=== PATIENT | male | born 1965 | race Caucasian/White ===

== ENCOUNTER 2017-05-05 09:21 | Emergency (ER) | payer BC ==
[~2017-05-05] VITALS: Ht 177.8 cm; Wt 118.4 kg
[2017-05-05 09:24] VITALS: TEMP 36.3; Ht 177.8 cm; Wt 118.4 kg
[2017-05-05] MEDS ORDERED: FLUT0.15 NAE (09:37)
[2017-05-05] MEDS ORDERED: OXYM0.056 NAE (09:37)
[2017-05-05] MEDS ORDERED: ONDANSETRON INJ 2 MG/ML 2 ML VIAL IV STA (09:43)
[2017-05-05] MEDS ORDERED: SODIUM CHLORIDE 0.9% 1000ML 1,000 ML IV STA (09:43)
[2017-05-05] MEDS ORDERED: MoRPHine SULFATE 10 MG/ML CARP/VIAL IV STA (09:43)
[2017-05-05 10:11] LABS: BASO % 0.6 %; BASO ABS # 0.03 K/uL (0-0.2); EOS % 3.9 %; EOS ABS # 0.21 K/uL (0-0.5); HEMATOCRIT 42.6 % (42-52); HEMOGLOBIN 14.7 g/dL (14.0-18.0); IG# 0.05 K/uL (0.00-0.02); LYMPH % 27.3 %; LYMPH ABS # 1.47 K/uL (1.2-3.4); MEAN CELL VOLUME 94.9 fL (80-100); MEAN CORPUSCULAR HEMOGLOBIN 32.7 pg (25-34); MEAN CORPUSCULAR HGB CONC 34.5 g/dl (32-36); MONO % 8.2 %; MONO ABS # 0.44 K/uL (0.11-0.59); NEUT % 59.1 %; NEUT ABS # 3.18 K/uL (1.4-6.5); PLATELET COUNT 257 K/uL (130-400); RED CELL DISTRIBUTION WIDTH CV 12.7 % (11.5-14.5); RED CELL DISTRIBUTION WIDTH SD 43.7 fL (36.4-46.3); WHITE BLOOD COUNT 5.38 K/uL (4.8-10.8)
[2017-05-05 10:32] LABS: ALBUMIN 3.2 gm/dl (3.4-5.0); CALCIUM 8.6 mg/dl (8.5-10.1); CREATININE 0.91 mg/dl (0.60-1.40); POTASSIUM 3.9 mmol/L (3.5-5.1)
[2017-05-05 10:35] LABS: TOTAL PROTEIN 7.3 gm/dl (6.4-8.2)
[2017-05-05] MEDS ORDERED: OPTIRAY 320 IV PRN (11:15)
--- NOTE | 2017-05-05 12:11 | DIAGNOSTIC IMAGING REPORT ---
ABD/PELVIS IV CONTRAST ONLY CT DOSE: 1405.36 mGy.cm HISTORY: Pain R mid quad abd pain x7 days TECHNIQUE: Multiaxial CT images of the abdomen and pelvis were performed following the use of intravenous contrast. A dose lowering technique was utilized adhering to the principles of ALARA. COMPARISON STUDY: None. FINDINGS: Nonspecific interstitial changes at both lung bases. Mild fatty infiltration of the liver. No significant space-occupying lesions. Lateral to the inferior aspect right hepatic lobe involving the right abdominal wall is what appears to be a heterogeneous abdominal wall hematoma laterally. This measures] 18 x 8 cm. It does not appear to be in active hemorrhagic focus. No definite acute bony abnormalities appreciated. There is no intra-abdominal extension. Bowel pattern is considered nonobstructive. Bladder is relatively collapsed. There is no free fluid within the pelvic cul-de-sac. There are scattered colonic diverticuli with no evidence for diverticulitis. IMPRESSION: 1. Right flank hematoma involving lower aspects of the right chest and lateral abdominal wall. 2. No evidence for intra-abdominal or intrapelvic pathology. 3. No acute bony abnormality. 4. Follow-up in several months to ensure complete resolution is suggested. 5. Mild bibasilar nonspecific interstitial change. The above report was generated using voice recognition software. It may contain grammatical, syntax or spelling errors. Electronically signed by: Ry Barnhart M.D. 05/05/2017 12:10 PM Dictated Date/Time: 05/05/2017 12:02 PM
[2017-05-05] MEDS ORDERED: HYDR-5688 PO (12:39)
[2017-05-05 12:55] VITALS: BP 118/84; PULSE 75; O2SAT 96
--- NOTE | 2017-05-05 15:16 | EMERGENCY ROOM VISIT NOTE ---
ED Visit Note First contact with patient: 09:29 Chief Complaint: Abdominal pain. History of Present Illness: Mr. Jaramillo is a 51 year-old white male who ambulates into the ED complaining of right sided abdominal pain. Historically patient reports last few months he has been diagnosed with chronic sinusitis. He has been having upper respiratory tract symptoms including coughing, sneezing. He reports last week, 7 days ago, he sneezed in his office and felt like he pulled a muscle on the right side of his abdomen. Since that time he has been having mild pain in the right mid quadrant area that worsens with cough. Patient reports today after waking in getting out of bed he may acute onset of severe right-sided abdominal pain in the same location. Currently he places this discomfort in the mid right quadrant area with mild radiation into the right flank and into the upper portion of the right lower quadrant. He has difficulty describing his discomfort. He rates his discomfort 8/10. His pain worsens with cough, taking a deep breath, movements at the waist and palpation. He has not identified any alleviating factors related to the pain. He reports he took 3 ibuprofen tablets prior to arrival at the hospital without relief of his discomfort. *Clear patient denies any significant gastrointestinal disorders and has had no previous abdominal surgeries. Patient denies fevers, chills, sweats, skin eruptions, skin color changes, upper respiratory tract symptoms, shortness of breath, chest pain, nausea, vomiting, diarrhea, constipation, rectal bleeding, black/tarry stools, urinary symptoms, hematuria, back/flank pain. Review of Systems: As noted above in history of present illness. All body systems were reviewed and found to be negative as noted above. Past Medical History: As previously noted and status post tonsillectomy. Current Medications: Flonase, Afrin. Allergies to Medications: Patient denies. Social History: Patient is currently employed; he feels safe in his home environment; he denies tobacco use and admits to alcohol use. Physical Examination: Vital Signs: Date Time Temp Pulse Resp B/P (MAP) Pulse Ox O2 Delivery O2 Flow Rate FiO2 05/05/17 12:55 75 118/84 96 05/05/17 11:41 84 15 125/88 93 Room Air 05/05/17 10:30 78 20 119/90 91 Room Air 05/05/17 10:05 86 05/05/17 10:03 88 16 136/98 96 Room Air 05/05/17 09:24 36.3 87 20 139/98 94 Room Air GENERAL: 51-year-old male in mild to moderate distress due to pain, nontoxic- appearing, afebrile and hemodynamically stable. NEUROLOGICAL: Awake, alert and oriented to person, place and time. Answering questions appropriately and following commands. Normal gait. Good hand eye coordination. SKIN: Warm, dry and pink. No soft tissue eruptions or trauma noted. HEENT: Atraumatic and normocephalic. PERRLA. Sclera white and conjunctiva pink. Oral cavity moist and pink. Pharynx is nonerythematous or edematous. Speech normal. No lymphadenopathy. Trachea midline. No jugular venous distention. BACK: No tenderness over the bony spine. No CVA tenderness. THORAX: Lungs sounds are clear to auscultation and equal bilaterally with symmetrical chest wall. No wheezing, rales or rhonchi. No crepitus, tenderness , subcutaneous air or deformities noted. HEART: Regular rate and rhythm. No gallops, rubs or murmurs are appreciated. ABDOMEN: Protuberant and soft mild tenderness starting at the lower border of the right upper quadrant and extending into the lower quadrant. No tenderness over McBurney's point. Decreased bowel sounds in all quadrants. No guarding, rigidity or organomegaly. EXTREMITIES: Moves all extremities well on command and with purpose. All distal neurovascular statuses are intact and equal bilaterally. ED Course: Patient is assessed as noted above. Patient's medication list was reviewed. Laboratory Testing: Test 05/05/17 09:55 05/05/17 11:45 Range/Units White Blood Count 5.38 4.8-10.8 K/uL Red Blood Count 4.49 4.7-6.1 M/uL Hemoglobin 14.7 14.0-18.0 g/dL Hematocrit 42.6 42-52 % Mean Corpuscular Volume 94.9 80-100 fL Mean Corpuscular Hemoglobin 32.7 25-34 pg Mean Corpuscular Hemoglobin Concent 34.5 32-36 g/dl Platelet Count 257 130-400 K/uL Mean Platelet Volume 9.0 7.4-10.4 fL Neutrophils (%) (Auto) 59.1 % Lymphocytes (%) (Auto) 27.3 % Monocytes (%) (Auto) 8.2 % Eosinophils (%) (Auto) 3.9 % Basophils (%) (Auto) 0.6 % Neutrophils # (Auto) 3.18 1.4-6.5 K/uL Lymphocytes # (Auto) 1.47 1.2-3.4 K/uL Monocytes # (Auto) 0.44 0.11-0.59 K/uL Eosinophils # (Auto) 0.21 0-0.5 K/uL Basophils # (Auto) 0.03 0-0.2 K/uL RDW Standard Deviation 43.7 36.4-46.3 fL RDW Coefficient of Variation 12.7 11.5-14.5 % Immature Granulocyte % (Auto) 0.9 % Immature Granulocyte # (Auto) 0.05 0.00-0.02 K/uL Sodium Level 142 136-145 mmol/L Potassium Level 3.9 3.5-5.1 mmol/L Chloride Level 108 98-107 mmol/L Carbon Dioxide Level 26 21-32 mmol/L Anion Gap 8.0 3-11 mmol/L Blood Urea Nitrogen 16 7-18 mg/dl Creatinine 0.91 0.60-1.40 mg/dl Est Creatinine Clear Calc Drug Dose 123.8 ml/min Estimated GFR () 112.7 Estimated GFR (Non- 97.2 BUN/Creatinine Ratio 17.2 10-20 Random Glucose 145 70-99 mg/dl Calcium Level 8.6 8.5-10.1 mg/dl Total Bilirubin 0.5 0.2-1 mg/dl Direct Bilirubin 0.1 0-0.2 mg/dl Aspartate Amino Transf (AST/SGOT) 19 15-37 U/L Alanine Aminotransferase (ALT/SGPT) 29 12-78 U/L Alkaline Phosphatase 86 45-117 U/L Total Protein 7.3 6.4-8.2 gm/dl Albumin 3.2 3.4-5.0 gm/dl Lipase 153 73-393 U/L Urine Color DK YELLOW Urine Appearance CLEAR CLEAR Urine pH 5.0 4.5-7.5 Urine Specific [place] 1.025 1.000-1.030 Urine Protein NEG NEG Urine Glucose (UA) NEG NEG Urine Ketones NEG NEG Urine Occult Blood NEG NEG Urine Nitrite NEG NEG Urine Bilirubin NEG NEG Urine Urobilinogen NEG NEG Urine Leukocyte Esterase NEG NEG IV Contrast Abdominal/Pelvic CT: Was reviewed by myself and read by the radiologist and shows large right flank measuring 18 x 8 cm with no active bleeding. Patient was hydrated with normal saline he initially received 6 mg of morphine IV for pain and 4 mg of Zofran IV. Patient was reassessed multiple times during his stay in the emergency department. Patient's case was reviewed with Dr. Li; we agreed on diagnostic approach, treatment, disposition and plan. She was educated about today's findings and instructed on his treatment plan; he verbalizes understanding and agreement with this plan. Clinical Impression: Right flank hematoma. Decision-Making: Initially my differential diagnosis I considered kidney stone, pyelonephritis, appendicitis, hepatitis, constipation, bowel obstruction and other causes. Disposition: Patient discharged home in stable condition; prior to departure he was reassessed and subjectively reported he was feeling better and rated his discomfort 2/10. Plan: Patient was encouraged to rate his discomfort every 6 hours and he was placed on a sliding pain scale of acetaminophen and [place]; his name was checked in the state database and no red flags were noted and he was given appropriate narcotic precautions. Patient was encouraged to have close follow-up with family physician for recheck. Patient was encouraged return to the ED for worsening/uncontrolled pain, bloody stools, bloody urine, fever or any new/concerning symptoms.
== END 2017-05-05 12:55 | disposition home or self-care (01) ==
LOC: C.EDB 09:23 → C.EDA 12:55
DX: S30.1XXA Contusion of abdominal wall, initial encounter (principal); X50.1XXA Overexertion from prolonged static or awkward postures, initial encounter; Y92.89 Other specified places as the place of occurrence of the external cause

== ENCOUNTER 2022-04-23 15:09 | Inpatient (IN) ==
[2022-04-23 16:16] LABS: Basophils # (auto) 0.04 K/uL (0-0.2); Basophils % (auto) 0.4 %; Eosinophils # (auto) 0.14 K/uL (0-0.50); Eosinophils % (auto) 1.6 %; Hematocrit (blood only) 42.8 % (40.1-51.0); Hemoglobin 15.2 g/dl (14.0-18.0); Immature Granulocytes # (auto) 0.03 K/uL (0.00-0.02); Immature Granulocytes % (auto) 0.3 %; Lymphocytes # (auto) 1.32 K/uL (1.2-3.4); Lymphocytes % (auto) 14.8 %; Mean Corpuscular Hemoglobin 33.2 pg (25.0-34.0); Mean Corpuscular Hgb Conc 35.5 g/dL (32.0-36.0); Mean Corpuscular Volume 93.4 fL (80.0-100.0); Mean Platelet Volume 9.4 fL (9.4-12.4); Monocytes # (auto) 0.64 K/uL (0.24-0.82); Monocytes % (auto) 7.2 %; Neutrophils # (auto) 6.75 K/uL (1.4-6.5); Neutrophils % (auto) 75.7 %; Platelet Count 165 K/uL (130-400); RDW Coefficient of Variation 11.9 % (11.5-14.5); RDW Standard Deviation 40.4 fL (36.4-46.3); Red Blood Count 4.58 M/uL (4.63-6.08); White Blood Count 8.92 K/ul (4.8-10.8)
[2022-04-23 16:27] LABS: INR 1.1 (0.9-1.1); Partial Thromboplastin Ratio 1.1; Partial Thromboplastin Time 29.6 Seconds (21.0-31.0); Prothrombin Time 11.5 Seconds (9.0-12.0)
[2022-04-23 16:48] LABS: Albumin Globulin Ratio 1.2 (0.9-2); Bilirubin,Total 0.9 mg/dl (0.2-1.0); Calcium 8.6 mg/dl (8.5-10.1); Creatinine Clr Calc Pharmacy 106.7 ml/min; Est GFR (African American) 97.1 ml/min; Est GFR (Non-African American) 83.8 ml/min; Globulin 3.3 gm/dl (2.5-4.0); Potassium 3.9 mmol/L (3.5-5.1); Total Protein 7.3 gm/dl (6.0-8.3)
[2022-04-23 16:51] LABS: Influenza A virus by PCR Negative (Neg); Influenza B virus by PCR Negative (Neg); RSV by PCR Negative (Neg); SARS CoV2 RNA(COVID-19) Ceph NEGATIVE (Negative)
[2022-04-23 17:09] LABS: D Dimer 330 ug/L FEU (0-500)
--- NOTE | 2022-04-23 18:07 | Emergency Department Note ---
Impression & Plan SOB (shortness of breath), Cardiomegaly, Pulmonary edema, HTN (hypertension) ED Provider Note Provider: Panfilo Gomez MD DATE OF SERVICE: 04/23/2022 CHIEF COMPLAINT: Shortness of breath, chest tightness HISTORY OF PRESENT ILLNESS: Patient is a 56-year-old gentleman presented today stating has been well recently woke up this morning and is chest was a bit tight and is feeling short of breath. Denies real chest pain. Denies significant abdominal pain or nausea or vomiting. Relays that not having any significant leg swelling or tenderness. Went to urgent care and was given a nebulizer and then sent here for further evaluation. States he did have a chest x-ray there and has a report on his phone from there. Patient states he does not regular go to the doctor as he is pretty healthy and has normal exercise tolerance when he is been exercising recently other than today. Has traveled recently to [place] and [facility]. Patient relates he may be had a little bit of swelling around his left great toe earlier but that is resolved and states he is a history of gout. Denies any significant calf or leg pain. PAST MEDICAL HISTORY: As noted above MEDICATIONS: Denies current medication SOCIAL HISTORY: Non-smoker Family history of heart disease in father PHYSICAL EXAM: GENERAL: alert and oriented in no acute distress on stretcher Head: normocephalic and atraumatic EYES: No injection, discharge or icterus. NECK: Trachea midline. ENT: Mucous membranes pink and moist. LUNGS: Airway patent. No retractions. Breath sounds clear slightly diminished in the bases. HEART: Regular rate and rhythm. No chest wall tenderness ABDOMEN: Soft and non-tender, without guarding or rebound. SKIN: Acyanotic, warm, dry, without rashes EXTREMITIES: Without swelling, tenderness or deformity NEUROLOGICAL: No focal deficits. No aphasia. No facial droop or slurred speech. Ambulatory. EK bpm sinus rhythm with PVC. No acute ST segment elevation with a QTC of 462. No significant ST depression noted. CONTINUOUS CARDIAC MONITORING: was ordered and showed a heart rate of 80s-90s bpm in normal sinus rhythm Patient's laboratory studies and imaging reviewed. Differential includes Cardiac ischemia, aortic dissection, pulmonary embolism, pneumothorax, pneumonia, pericarditis, myocarditis, esophageal rupture, GERD, cholecystitis, pancreatitis, musculoskeletal, as well as other pathologies. IMPRESSION/MEDICAL DECISION MAKING: Patient with a negative COVID test. EKG obtained without significant abnormality. Does report mainly shortness of breath with some tightness of breathing but no history of smoking or asthma reported. Reviewed his chest x- ray report is available on his phone to me with interstitial markings noted on that report. Again denies chest pain. Benign abdomen. Not having significant swelling or tenderness of the calves and lower suspicion for DVT here. If he can anemia or leukocytosis on blood work. D-dimer not significantly elevated. Negative flu and RSV test as well. No signs of hepatitis. No significant electrolyte abnormality or signs of renal dysfunction. Troponin is interestingly elevated at 53.9. This is concerning given the tightness and shortness of breath he reports. Although this time is not significant elevated to complete a CT of the chest to exclude pulmonary embolism especially in light of his recent travel. CT report per radiology without evidence of PE with cardiomegaly as well as small bilateral pleural effusions with interstitial pulmonary edema and groundglass opacities reflecting a cyst versus El early pulmonary edema. Question if he may have developed some, cardiac event and has a touch of heart failure. Does not appear grossly fluid overloaded clinically exam not hypoxic. Given however is otherwise healthy status with this change of the elevated troponin discussed with him further care here at the hospital and cardiac evaluation. Question onset of some CHF of unclear etiology. Hospitalist contacted. Given a dose of aspirin as well as a small dose of Lasix IV. DIAGNOSIS: Shortness of breath, elevated troponin, bilateral pleural effusions DISPOSITION: Hospitalist will evaluate Patient was agreeable with this plan. Past Med/Surg History Medical History Gout HTN (hypertension) [place] on CPAP Surgical History S/P tonsillectomy Family History Other Hypertension Social History Smoking Status: Never smoker Hx Alcohol Use: Yes Alcohol type: wine Alcohol Intake Frequency: 2-3 x/Week Preferred Language: Portuguese Feels Safe at Home: Yes Allergies Allergies Allergy/AdvReac Type Severity Reaction Status Date / Time No Known Allergies Allergy Unverified 04/23/22 19:10 Home Meds Home Medications Medication Instructions Recorded Confirmed multivitamin 1 tab PO DAILY 04/23/22 04/23/22 phenylephrin 5 mg-DM 10 2 tab PO Q4H PRN .cold/flu 04/23/22 04/23/22 mg-acetaminophen 325 mg-guaifen 200 mg capsule (Mucinex Fast-Max Cold-Flu) Results & Data (ED) Vital Signs Vital Signs - 24 hr 04/23/22 15:12 04/23/22 15:12 04/23/22 15:54 Temperature 36.2 C L Temperature Source Temporal Artery Scan Pulse Rate 90 Pulse Rate [Apical] 88 Pulse Rhythm [Apical] Pulse Strength [Apical] Respiratory Rate 18 19 Respiratory Effort / Characteristics Non-Labored Spontaneous Respiratory Depth Normal Respiratory Pattern Regular Blood Pressure 172/108 H Blood Pressure [Left Arm] 154/105 H Blood Pressure Mean 129 Blood Pressure Mean [Left Arm] 121 Blood Pressure Position Sitting Blood Pressure Position [Left Arm] Pulse Oximetry 97 97 96 Oxygen Delivery Method Room Air Room Air Room Air Oxygen Flow Rate Sepsis Recent Fever Within 48 Hours No Sepsis New/Unexplained Change in Mental Status N/A Sepsis Action Taken by Nursing No Action Required 04/23/22 18:18 04/23/22 18:21 Temperature Temperature Source Pulse Rate Pulse Rate [Apical] 97 H Pulse Rhythm [Apical] Regular Pulse Strength [Apical] Normal Respiratory Rate 18 Respiratory Effort / Characteristics Non-Labored Respiratory Depth Normal Respiratory Pattern Blood Pressure Blood Pressure [Left Arm] 176/121 H Blood Pressure Mean Blood Pressure Mean [Left Arm] 139 Blood Pressure Position Blood Pressure Position [Left Arm] Sitting Pulse Oximetry 97 97 Oxygen Delivery Method Room Air Room Air Oxygen Flow Rate 0 Sepsis Recent Fever Within 48 Hours Sepsis New/Unexplained Change in Mental Status Sepsis Action Taken by Nursing Laboratory Data 04/23/22 15:58 04/23/22 15:58 Lab Results 04/23/22 04/23/22 04/23/22 Range/Units 15:58 15:58 15:58 WBC 8.92 (4.8-10.8) K/ul RBC 4.58 L (4.63-6.08) M/uL Hgb 15.2 (14.0-18.0) g/dl Hct 42.8 (40.1-51.0) % MCV 93.4 (80.0-100.0) fL MCH 33.2 (25.0-34.0) pg MCHC 35.5 (32.0-36.0) g/dL RDW Std Deviation 40.4 (36.4-46.3) fL RDW Coeff of Dre 11.9 (11.5-14.5) % Plt Count 165 (130-400) K/uL MPV 9.4 (9.4-12.4) fL Immature Gran % (Auto) 0.3 % Neut % (Auto) 75.7 % Lymph % (Auto) 14.8 % [place] % (Auto) 7.2 % Eos % (Auto) 1.6 % Baso % (Auto) 0.4 % Neut # (Auto) 6.75 H (1.4-6.5) K/uL Lymph # (Auto) 1.32 (1.2-3.4) K/uL [place] # (Auto) 0.64 (0.24-0.82) K/uL Eos # (Auto) 0.14 (0-0.50) K/uL Baso # (Auto) 0.04 (0-0.2) K/uL Immature Gran # (Auto) 0.03 H (0.00-0.02) K/uL PT 11.5 (9.0-12.0) Seconds INR 1.1 (0.9-1.1) APTT 29.6 (21.0-31.0) Seconds PTT Ratio 1.1 D-Dimer (0-500) ug/L FEU Sodium 139 (136-145) mmol/L Potassium 3.9 (3.5-5.1) mmol/L Chloride 104 (98-107) mmol/L Carbon Dioxide 29 (21-32) mmol/L Anion Gap 6 (3-11) BUN 13 (6-23) mg/dl Creatinine 1.00 (0.6-1.4) mg/dl Est Cr Clr Drug Dosing 106.7 ml/min Est GFR ( Amer) 97.1 ml/min Est GFR (Non-Af Amer) 83.8 ml/min BUN/Creatinine Ratio 13.0 (10-20) Glucose 88 (70-99(Fasting)) mg/dl Calcium 8.6 (8.5-10.1) mg/dl Magnesium 2.0 (1.7-2.4) mg/dl Total Bilirubin 0.9 (0.2-1.0) mg/dl AST 19 (13-39) U/L ALT 19 (7-52) U/L Alkaline Phosphatase 79 (34-104) U/L Troponin I High Sens (0-20) pg/ml Total Protein 7.3 (6.0-8.3) gm/dl Albumin 4.0 (3.4-5.0) gm/dl Globulin 3.3 (2.5-4.0) gm/dl Albumin/Globulin Ratio 1.2 (0.9-2) SARS-CoV-2 (PCR) (Negative) Influenza Type A (PCR) (Neg) Influenza Type B (PCR) (Neg) RSV (RT-PCR) (Neg) 04/23/22 04/23/22 04/23/22 Range/Units 15:58 15:58 15:58 WBC (4.8-10.8) K/ul RBC (4.63-6.08) M/uL Hgb (14.0-18.0) g/dl Hct (40.1-51.0) % MCV (80.0-100.0) fL MCH (25.0-34.0) pg MCHC (32.0-36.0) g/dL RDW Std Deviation (36.4-46.3) fL RDW Coeff of Dre (11.5-14.5) % Plt Count (130-400) K/uL MPV (9.4-12.4) fL Immature Gran % (Auto) % Neut % (Auto) % Lymph % (Auto) % [place] % (Auto) % Eos % (Auto) % Baso % (Auto) % Neut # (Auto) (1.4-6.5) K/uL Lymph # (Auto) (1.2-3.4) K/uL [place] # (Auto) (0.24-0.82) K/uL Eos # (Auto) (0-0.50) K/uL Baso # (Auto) (0-0.2) K/uL Immature Gran # (Auto) (0.00-0.02) K/uL PT (9.0-12.0) Seconds INR (0.9-1.1) APTT (21.0-31.0) Seconds PTT Ratio D-Dimer 330 (0-500) ug/L FEU Sodium (136-145) mmol/L Potassium (3.5-5.1) mmol/L Chloride (98-107) mmol/L Carbon Dioxide (21-32) mmol/L Anion Gap (3-11) BUN (6-23) mg/dl Creatinine (0.6-1.4) mg/dl Est Cr Clr Drug Dosing ml/min Est GFR ( Amer) ml/min Est GFR (Non-Af Amer) ml/min BUN/Creatinine Ratio (10-20) Glucose (70-99(Fasting)) mg/dl Calcium (8.5-10.1) mg/dl Magnesium (1.7-2.4) mg/dl Total Bilirubin (0.2-1.0) mg/dl AST (13-39) U/L ALT (7-52) U/L Alkaline Phosphatase (34-104) U/L Troponin I High Sens 53.9 H* (0-20) pg/ml Total Protein (6.0-8.3) gm/dl Albumin (3.4-5.0) gm/dl Globulin (2.5-4.0) gm/dl Albumin/Globulin Ratio (0.9-2) SARS-CoV-2 (PCR) NEGATIVE (Negative) Influenza Type A (PCR) Negative (Neg) Influenza Type B (PCR) Negative (Neg) RSV (RT-PCR) Negative (Neg) Administered Medications Discontinued Medications Aspirin (Aspirin 81 Mg Chew) 324 mg PO NOW STA Stop: 04/23/22 19:36 Last Admin: 04/23/22 19:40 Dose: 324 mg Documented By: PRIMITIVO Furosemide (Furosemide Inj 20 Mg/2 Ml Vial) 20 mg IV ONE ONE Stop: 04/23/22 19:36 Last Admin: 04/23/22 19:40 Dose: 20 mg Documented By: PRIMITIVO Ioversol (Optiray 320 500ml) 113 ml IV ONCE ONE Stop: 04/23/22 18:27 Last Admin: 04/23/22 18:28 Dose: 113 ml Documented By: KALEN Labetalol HCl (Labetalol Hcl Iv 5 Mg/Ml 20ml) 10 mg IV NOW STA Stop: 04/23/22 20:31 Last Admin: 04/23/22 21:00 Dose: 10 mg Documented By: PRIMITIVO Co-signed By: ALEX Imaging Data Radiologist's Impression: Chest CTA 04/23/22 17:57 CT ANGIOGRAPHY OF THE CHEST, PULMONARY EMBOLUS PROTOCOL CLINICAL HISTORY: Shortness of breath, chest pain. Elevated troponin. Evaluate for pulmonary embolus. COMPARISON STUDY: No previous studies for comparison. TECHNIQUE: Following IV administration of 113 mL of Optiray, helical axial images of the chest were obtained utilizing the pulmonary embolus protocol. Maximal intensity projections and sagittal and coronal reformats were viewed on an independent 3D workstation. IV contrast was administered without complication. Automated exposure control was utilized for the study. A dose lowering technique was utilized adhering to the principles of ALARA. CT DOSE: 863.90 mGy.cm FINDINGS: No pulmonary emboli are identified. Moderate cardiomegaly is noted. There is mild dilatation of the ascending aorta, measuring 3.9 cm at the level of the main pulmonary artery. There is moderate aortic valvular calcification. No pericardial effusion is present. Small bilateral pleural effusions are noted. There is no pneumothorax. Interlobular septal thickening is present. Scattered mild groundglass opacities are noted. There is no thoracic lymphadenopathy. Bony thorax is unremarkable. There is a small hiatal hernia. Possible hepatic steatosis. IMPRESSION: 1. No pulmonary emboli identified. 2. Moderate cardiomegaly. Small bilateral pleural effusions with interstitial pulmonary edema. Groundglass opacities could reflect atelectasis or alveolar pulmonary edema. 3. Moderate aortic valvular calcification. ACT 112: Negative or not required by law. Electronically signed by: Jeff Keys M.D. 04/23/2022 7:02 PM Discharge Plan Visit Data Chief Complaint: Shortness of Breath/Dyspnea Stated Complaint: REF BY DOC, SOB, TIGHTNESS IN CHEST ED Provider: Panfilo Gomez Discharge Problem: SOB (shortness of breath), Cardiomegaly, Pulmonary edema, HTN (hypertension) Patient Disposition: Being Evaluated by Hospitalist Discharge Instructions Interventions: ED Discharge Assessment Last Done: 04/23/22 22:03
[2022-04-23] MEDS ORDERED: OPTIRAY 320 500ml IV ONE (18:26)
--- NOTE | 2022-04-23 19:04 | CT Scan Report ---
CT ANGIOGRAPHY OF THE CHEST, PULMONARY EMBOLUS PROTOCOL CLINICAL HISTORY: Shortness of breath, chest pain. Elevated troponin. Evaluate for pulmonary embolus. COMPARISON STUDY: No previous studies for comparison. TECHNIQUE: Following IV administration of 113 mL of Optiray, helical axial images of the chest were o btained utilizing the pulmonary embolus protocol. Maximal intensity projections and sagittal and cor onal reformats were viewed on an independent 3D workstation. IV contrast was administered without co mplication. Automated exposure control was utilized for the study. A dose lowering technique was ut ilized adhering to the principles of ALARA. CT DOSE: 863.90 mGy.cm FINDINGS: No pulmonary emboli are identified. Moderate cardiomegaly is noted. There is mild dilatati on of the ascending aorta, measuring 3.9 cm at the level of the main pulmonary artery. There is moder ate aortic valvular calcification. No pericardial effusion is present. Small bilateral pleural effusi ons are noted. There is no pneumothorax. Interlobular septal thickening is present. Scattered mild gr oundglass opacities are noted. There is no thoracic lymphadenopathy. Bony thorax is unremarkable. The re is a small hiatal hernia. Possible hepatic steatosis. IMPRESSION: 1. No pulmonary emboli identified. 2. Moderate cardiomegaly. Small bilateral pleural effusions with interstitial pulmonary edema. Ground glass opacities could reflect atelectasis or alveolar pulmonary edema. 3. Moderate aortic valvular calcification. ACT 112: Negative or not required by law. Electronically signed by: Jeff Keys M.D. 04/23/2022 7:02 PM
[2022-04-23] MEDS ORDERED: FUROSEMIDE INJ 20 MG/2 ML VIAL IV ONE (19:35)
[2022-04-23] MEDS ORDERED: ASPIRIN 81 MG CHEW PO STA (19:35)
--- NOTE | 2022-04-23 20:04 | History & Physical Report ---
Date of Service April 23, 2022 Assessment & Plan (1) SOB (shortness of breath): (2) Pulmonary edema: (3) Cardiomegaly: Plan: This is a 56yo M with HTN, ISRA[place], gout who presents with chest tightness and SOB. Was seen earlier this afternoon at urgent care and given nebulizer without much improvement of symptoms and was directed to ED for further evaluation and found to have cardiomegaly and pulmonary edema concerning for CHF. SOB, chest tightness and orthopnea since early this AM Denies previous dx of HTN,CHF, arrhythmia or DC Chest CTA without pulmonary emboli identified. Moderate cardiomegaly. Small bilateral pleural effusions with interstitial pulmonary edema. Moderate aortic valvular calcification Given aspirin 324 and lasix 20mg IV x 1 in ED with good diuresis so far. Will plan on additional 10mg IV in AM and reassess volume Strict I&Os, added BNP to labs, low sodium diet, daily weights, 2D echo, repeat ECG in AM, cardiology consult ECG with NSR with frequent PVCs. HS troponin 53.9 in setting of uncontrolled BP - trend, monitor on tele (4) HTN (hypertension): Plan: Uncontrolled since arrival, 170/106 during interview. Ordered 10mg IV Labetalol. Continue to monitor closely History of HTN per outpatient chart review but patient denies ever taking medications for this Does endorse recent weight gain, concern about ill-fitting cpap device (5) ISRAEL on CPAP: Plan: Wears HS, 13 cwp DVT Ppx: SQ heparin Code status: FULL PCP: Minh Dispo: Admitted to PCU Patient seen in collaboration with Dr. Belle. Please see addendum. History of Present Illness Chief Complaint: SOB, chest tightness Primary Care Provider: Av Wilkinson MD This is a 56yo M with HTN, [place]RA[place], gout who presents with chest tightness and SOB. Was seen earlier this afternoon at urgent care and given nebulizer without much improvement of symptoms and was directed to ED for further evaluation. Noticed some heart racing prior to [place] and thought he was drinking too much caffeine so cut out coffee. Has not had recurrent palpitations since then but did wake up with chest tightness and inability to fully catch his breath. Has not been as active lately since weather is colder and has gained some weight. Has a dry cough and orthopnea today requiring him to sit in bedside chair during interview. Endorses small amount of leg swelling but no junior chest pain. Rec ent travel to [facility] and [place]. Does not regularly take meds besides a multivitamin. Uses his cpap every night but states he needs to get the face strap replaced because it isn't sealing well. Has a diagnosis of HTN in outpatient chart but has never been on medications. No fever, chills, lightheadedness, CP, wheezing, nausea, vomiting, abdominal pain, dysuria, diarrhea or constipation. 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 Allergies Allergy/AdvReac Type Severity Reaction Status Date / Time No Known Allergies Allergy Unverified 04/23/22 19:10 Home Medications Medication Instructions Recorded Confirmed Type multivitamin 1 tab PO DAILY 04/23/22 04/23/22 History phenylephrin 5 mg-DM 10 2 tab PO Q4H PRN .cold/flu 04/23/22 04/23/22 History mg-acetaminophen 325 mg-guaifen 200 mg capsule (Mucinex Fast-Max Cold-Flu) Past Med/Surg History Medical History Gout HTN (hypertension) ISRAEL on CPAP Surgical History S/P tonsillectomy Family History Other Hypertension Social History Smoking Status: Never smoker Hx Alcohol Use: Yes Alcohol type: wine Alcohol Intake Frequency: 2-3 x/Week Preferred Language: Arabic Feels Safe at Home: Yes Review of Systems Review of Systems: At least ten systems reviewed and negative except as noted in the HPI. Physical Exam Physical Exam: Please see Dr. Belle's addendum for physical exam. Results & Data Results & Data ([facility]) Vital Signs (Past 12 Hours) Vital Signs Temp Pulse Pulse Resp BP BP Pulse Ox 04/23/22 18:21 97 H 18 176/121 H 97 04/23/22 18:18 97 04/23/22 15:54 88 19 154/105 H 96 04/23/22 15:12 97 04/23/22 15:12 36.2 C L 90 18 172/108 H 97 O2 Del Method O2 Flow Rate 04/23/22 18:21 Room Air 04/23/22 18:18 Room Air 0 04/23/22 15:54 Room Air 04/23/22 15:12 Room Air 04/23/22 15:12 Room Air Laboratory Results Short CBC 04/23/22 Range/Units 15:58 WBC 8.92 (4.8-10.8) K/ul Hgb 15.2 (14.0-18.0) g/dl Hct 42.8 (40.1-51.0) % Plt Count 165 (130-400) K/uL BMP 04/23/22 15:58 Sodium 139 Potassium 3.9 Chloride 104 Carbon Dioxide 29 BUN 13 Creatinine 1.00 Glucose 88 Calcium 8.6 Liver Function 04/23/22 Range/Units 15:58 Total Bilirubin 0.9 (0.2-1.0) mg/dl AST 19 (13-39) U/L ALT 19 (7-52) U/L Alkaline Phosphatase 79 (34-104) U/L Albumin 4.0 (3.4-5.0) gm/dl Diagnostic Findings Chest CTA 04/23/22 17:57 CT ANGIOGRAPHY OF THE CHEST, PULMONARY EMBOLUS PROTOCOL CLINICAL HISTORY: Shortness of breath, chest pain. Elevated troponin. Evaluate for pulmonary embolus. COMPARISON STUDY: No previous studies for comparison. TECHNIQUE: Following IV administration of 113 mL of Optiray, helical axial images of the chest were obtained utilizing the pulmonary embolus protocol. Maximal intensity projections and sagittal and coronal reformats were viewed on an independent 3D workstation. IV contrast was administered without complication. Automated exposure control was utilized for the study. A dose lowering technique was utilized adhering to the principles of ALARA. CT DOSE: 863.90 mGy.cm FINDINGS: No pulmonary emboli are identified. Moderate cardiomegaly is noted. There is mild dilatation of the ascending aorta, measuring 3.9 cm at the level of the main pulmonary artery. There is moderate aortic valvular calcification. No pericardial effusion is present. Small bilateral pleural effusions are noted. There is no pneumothorax. Interlobular septal thickening is present. Scattered mild groundglass opacities are noted. There is no thoracic lymphadenopathy. Bony thorax is unremarkable. There is a small hiatal hernia. Possible hepatic steatosis. IMPRESSION: 1. No pulmonary emboli identified. 2. Moderate cardiomegaly. Small bilateral pleural effusions with interstitial pulmonary edema. Groundglass opacities could reflect atelectasis or alveolar pulmonary edema. 3. Moderate aortic valvular calcification. ACT 112: Negative or not required by law. Electronically signed by: Jeff Keys M.D. 04/23/2022 7:02 PM ECG Additional Comments: ECG personally reviewed - NSR with frequent PVCs at [address] elevation. Code Status & VTE Plan VTE Prophylaxis Plan VTE Prophylaxis will be ordered: Yes Supervising Physician Co-Signing Physician Notes Pt is a 56 y/o M with hx of ISRA[place] on CPAP, HTN, Gout admitted for SOB with Chest pressure for one day. PE: NAD, well developed Lungs: Good air entry b/l, no wheezing, b/l lower lobe rales Cardiac: Normal S1/S2, with systolic murmur Abd: ND, NT, soft MSK: b/l moderate LE pitting edema Psych: AAOx3, normal affect A/P: SOB with chest pressure: -likely 2/2 pulm edema from possible CHF or pulm HTN from ISRA[place] -will trend trop -EKG Am - will obtain echo and card consult -s/p 20mg IV Lasix -since pt is Lasix max will start on Lasix 10mg IV daily --- depending on the echo and BP response will consider adding ACEi or ARBs to control pts BP -will obtain A1C and Lipid panel AM -admit to tele Other chronic conditions plan as above. Agree with A/P by Naty Segovia PA-C
[2022-04-23] MEDS ORDERED: LABETALOL HCL IV 5 MG/ML 20ML IV STA (20:30)
[2022-04-23] MEDS ORDERED: POLYETHYLENE (MIRALAX) 17 GM PACK PO PRN (22:02)
[2022-04-23] MEDS ORDERED: ONDANSETRON INJ 2 MG/ML 2 ML VIAL IV PRN (22:02)
[2022-04-24] MEDS: HEPARIN SOD 5,000 UNIT/0.5 ML VIAL SQ SCH ×4 (01:21→21:11)
[2022-04-24] MEDS: ACETAMINOPHEN 325 MG TAB PO PRN ×3 (01:35→21:12)
[2022-04-24 04:36] LABS: Hematocrit (blood only) 40.2 % (40.1-51.0); Hemoglobin 14.4 g/dl (14.0-18.0); Mean Corpuscular Hemoglobin 33.1 pg (25.0-34.0); Mean Corpuscular Hgb Conc 35.8 g/dL (32.0-36.0); Mean Corpuscular Volume 92.4 fL (80.0-100.0); Mean Platelet Volume 9.6 fL (9.4-12.4); Platelet Count 165 K/uL (130-400); RDW Coefficient of Variation 11.9 % (11.5-14.5); RDW Standard Deviation 39.9 fL (36.4-46.3); Red Blood Count 4.35 M/uL (4.63-6.08); White Blood Count 5.89 K/ul (4.8-10.8)
[2022-04-24 05:03] LABS: BUN Creatinine Ratio 13.6 (10-20); Calcium 8.8 mg/dl (8.5-10.1); Creatinine Clr Calc Pharmacy 121.2 ml/min; Est GFR (African American) 111.3 ml/min; Potassium 3.5 mmol/L (3.5-5.1)
[2022-04-24 06:26] LABS: Estimated Average Glucose 105 mg/dl; Hemoglobin A1C 5.3 % (4.5-5.6)
[2022-04-24] MEDS: MULTIVITAMIN TAB PO SCH (08:33)
[2022-04-24] MEDS ORDERED: FUROSEMIDE INJ 20 MG/2 ML VIAL IV SCH (09:00)
--- NOTE | 2022-04-24 09:24 | Cardiology Consultation ---
Date of Consultation April 24, 2022 Assessment & Plan (1) Systolic dysfunction: (2) Pulmonary edema: (3) Cardiomyopathy: (4) HTN (hypertension): (5) Systolic murmur: Plan 56-year-old male without prior cardiac history admitted with acute onset dyspnea and congestion. Imaging with pulmonary edema, small bilateral pleural effusions. Presenting symptoms improved after receiving low dose IV furosemide in the ER. Patient with signs and symptoms suggestive of new onset systolic heart failure (HFrEF) of unknown etiology. High-sensitivity troponin minimally elevated but flat. EKG with ST and T wave changes. Telemetry with rare ectopy only. QRS duration is narrow. RECOMMENDATIONS/PLAN: Continue low dose IV furosemide today. Hold in AM. Supplement potassium orally Initiate evidence based heart failure medications - low dose lisinopril and metoprolol succinate; likely low dose oral furosemide and spironolactone prior to discharge. Add Aspirin 81 mg/day Evaluate for underlying causes. Additional laboratory work ordered. NPO after midnight for possible diagnostic cardiac catheterization in the AM of 04/25/2022 Low sodium diet, < 1,500 mg/day Daily metabolic panels, strict I/O monitoring, daily weights on the same standing scale. Await resting echocardiography interpretation Further recommendations pending the above, evaluation by Dr. Michelle, and patient's ongoing hospital course. Supervising Physician Co-Signing Physician Notes 56-year-old patient admitted with dyspnea and chest tightness. Echocardiogram revealing moderate to severe LV systolic dysfunction and aortic valve sclerosis, borderline mild aortic valve stenosis. Patient treated with IV labetalol and furosemide with improvement of blood pressure and clinical symptoms. Currently resting comfortably. Shortness of breath improved. Repeat ECG demonstrating lateral ST changes suggesting ischemia. Cardiac enzymes are minimally elevated and flat. PE: VSS. Gen: NAD, AAO x3. Heart: Regular rhythm, normal S1-S2, 2/6 low pitched mid peaking systolic ejection murmur heard best at the right second intercostal space. Lungs: +rales at the bases bilateral. Extremities: Trace to mild bilateral pretibial edema. A/P: Agree with above PA-C history, physical exam, assessment and plan. Patient presents with acute decompensated heart failure with reduced ejection fraction. Underlying ischemic heart disease suspected with abnormal ECG and echocardiographic findings. Recommend repeat high-sensitivity troponin and ECG now. Initiate evidence-based heart failure therapy. Recommend 25 mg of metoprolol twice daily. He will receive 1 dose now. Add topical nitrates for afterload reduction. Continue IV diuresis. Give additional 20 mg IV furosemide at 3 PM. Monitor daily weight, fluid balance, GFR, electrolytes. Risk, benefits, and alternatives to cardiac catheterization recommended. Plan coronary angiography with left heart catheterization tomorrow pending review of a.m. labs and clinical status. History of Present Illness Reason for Consultation: Pulmonary edema, no CHF history Requesting Physician: Luca Attending Physician: Patrick History of Present Illness Mr. Saurabh Jaramillo is a 56 year old male who initially presented to [facility] on April 23, 2022 after awakening with abrupt onset shortness of breath, difficulty getting a deep breath, chest tightness. Moving to the cold air seemed to help. Respiratory pathogen panel negative at [facility]. Chest x-ray revealed increased interstitial markings, interpreted by the radiologist as possible atypical pneumonia versus pulmonary edema. EKG at [facility] revealed sinus rhythm at 86 bpm with occasional premature ventricular complexes, nonspecific ST abnormality lateral leads. QRS duration 98 ms. QTc 469 ms. SPO2 was mildly decreased. Patient received a nebulizer treatment without improvement and was directed to the ER. EKG on presentation to the ER revealed sinus rhythm at 91 bpm with occasional premature ventricular complexes. EKG this morning reveals normal sinus rhythm at 65 bpm with subtle anterior T wave changes and lateral ST and T wave abnormality suggestive of ischemia versus LVH. High-sensitivity troponin I minimally elevated but flat at 53.9, 55.6, 56.5 pg/mL. B natruretic peptide mildly elevated 618 pg/mL. Imaging in the ER included a CTA of the chest due to recent travel, without evidence of pulmonary emboli. CT did reveal moderate cardiomegaly with small bilateral pleural effusions with interstitial pulmonary edema, groundglass opacities, moderate aortic valve calcification In addition to the above, patient notes a mild cough, nasal and chest congestion, orthopnea. A couple of weeks ago he states that he felt jittery, attributed to drinking coffee on an empty stomach at that time. Dyspnea occurs with 1 flight of stairs. Significant lower extremity peripheral edema. No dizziness or lightheadedness. No near syncope or syncope. No recent colds, fevers, chills, or night sweats. Past Medical and Surgical History Hypertension Severe obstructive sleep apnea, CPAP therapy Gout Tonsillectomy Mildly dilated ascending aorta, 3.9 cm at the level of the main pulmonary artery via April 23, 2022 chest CTA at [facility] Moderate aortic valve calcification Small hiatal hernia Possible hepatic steatosis Family History: Father had CHF, passing at 86. Mother is alive with? CAD. Brother with hypertension. Sister without cardiac issues. Social History: Non-smoker. No smokeless tobacco. No significant alcohol. No illegal drug use. . 2 children. 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 No fevers, sweats, or chills. HEENT: + Farsightedness. No amaurosis fugax. Pulmonary: Severe obstructive sleep apnea, on CPAP therapy. No history of PE. No history of asthma. No history of COPD or emphysema. Cardiac: No prior cardiac history. Patient specifically denies history of CAD, PR, CHF, arrhythmia, rheumatic fever, or scarlet fever. GI/Abd: No dysphagia, pain, melana or hematochezia. No significant heartburn. Denies liver or kidney problems. Vascular: Denies history of claudication, AAA, or carotid artery disease. Hematologic: No coagulation disorder, anemia, or abnormal bleeding. Musculoskeletal: Gout. Skin: No rash. Neurologic: No history of TIA or CVA. No history of seizure. Male : Negative. Endocrine: No history of DM or thyroid problems. Complete Review of Systems is as stated above, negative, noncontributory. Allergies Allergy/AdvReac Type Severity Reaction Status Date / Time No Known Allergies Allergy Unverified 04/23/22 19:10 Home Medications Medication Instructions Recorded Confirmed Type multivitamin 1 tab PO DAILY 04/23/22 04/23/22 History phenylephrin 5 mg-DM 10 2 tab PO Q4H PRN .cold/flu 04/23/22 04/23/22 History mg-acetaminophen 325 mg-guaifen 200 mg capsule (Mucinex Fast-Max Cold-Flu) Patient History Medical History Gout HTN (hypertension) [place]RA[place] on CPAP Surgical History S/P tonsillectomy Family History Other Hypertension Social History Smoking Status: Never smoker Hx Alcohol Use: No Hx Substance Use: No Preferred Language: Dominican Beliefs That Will Affect Care: None Current Living Situation: Alone Feels Safe at Home: Yes Physical Exam Physical Exam: General: A&Ox3. NAD. HENT: Normocephalic. Atraumatic. Eyes: PER. Conjunctiva pink, sclera clear. Neck:? Left carotid bruit versus transmitted murmur. No JVD. Heart: RRR, 70 bpm. Grade II/ systolic ejection murmur heard best at the right upper sternal border. No diastolic murmur. No rub. No gallop. Lungs: Decreased breath sounds at the bases. Bibasilar Rales. No wheeze. Abdomen: +BS. Soft. Nontender. No masses or organomegaly. Extremities: Minimal edema. No clubbing. No cyanosis. Limited neurological examination is without focal deficits. Pulses: radial=2/4, posterior tibial=2/4. Results & Data ([facility]) Vital Signs (Past 12 Hours) Vital Signs Pulse Pulse Resp BP BP Pulse Ox O2 Del Method 04/24/22 07:58 73 18 142/95 H 96 Room Air 04/24/22 07:58 18 96 Room Air 04/24/22 06:30 74 14 97 04/24/22 06:30 140/94 04/24/22 06:20 56 L 14 88 L 04/24/22 06:10 66 19 94 04/24/22 06:00 66 15 93 04/24/22 06:00 136/90 04/24/22 05:50 68 20 92 04/24/22 05:40 67 20 95 04/24/22 05:34 136/95 04/24/22 05:34 70 16 94 04/24/22 05:30 81 31 H 95 04/24/22 05:20 87 13 92 04/24/22 05:10 62 20 92 04/24/22 05:00 65 20 93 04/24/22 04:50 68 23 93 04/24/22 04:40 63 22 94 04/24/22 04:30 65 22 83 L 04/24/22 04:30 115/79 04/24/22 04:20 62 20 89 L 04/24/22 04:10 63 16 91 04/24/22 04:00 68 18 94 04/24/22 04:00 128/86 04/24/22 03:50 64 20 92 04/24/22 03:40 58 L 13 92 04/24/22 03:30 65 13 90 04/24/22 03:30 119/84 04/24/22 03:20 64 14 93 04/24/22 03:10 69 22 88 L 04/24/22 03:00 71 20 93 04/24/22 03:00 132/90 04/24/22 02:50 70 23 89 L 04/24/22 02:40 67 22 92 04/24/22 02:35 68 23 92 04/23/22 21:46 78 18 151/90 H 94 Room Air Laboratory Results Cardiac Enzymes 04/23/22 04/23/22 04/23/22 Range/Units 15:58 15:58 21:47 AST 19 (13-39) U/L Troponin I High Sens 53.9 H* (0-20) pg/ml B-Natriuretic Peptide 618 H (0-100) pg/ml 04/23/22 04/24/22 Range/Units 22:47 04:00 AST (13-39) U/L Troponin I High Sens 55.6 H* 56.5 H* (0-20) pg/ml B-Natriuretic Peptide (0-100) pg/ml Coagulation 04/23/22 04/23/22 Range/Units 15:58 21:47 PT 11.5 (9.0-12.0) Seconds APTT 29.6 (21.0-31.0) Seconds B-Natriuretic Peptide 618 H (0-100) pg/ml Lipids 04/24/22 Range/Units 04:00 Triglycerides 301 H (0-150) mg/dl Cholesterol 194 (0-200) mg/dl HDL Cholesterol 39 mg/dl Cholesterol/HDL Ratio 5.0 (0-5) CBC 04/23/22 04/24/22 Range/Units 15:58 04:00 WBC 8.92 5.89 (4.8-10.8) K/ul RBC 4.58 L 4.35 L (4.63-6.08) M/uL Hgb 15.2 14.4 (14.0-18.0) g/dl Hct 42.8 40.2 (40.1-51.0) % Plt Count 165 165 (130-400) K/uL Neut # (Auto) 6.75 H (1.4-6.5) K/uL Lymph # (Auto) 1.32 (1.2-3.4) K/uL [place] # (Auto) 0.64 (0.24-0.82) K/uL Eos # (Auto) 0.14 (0-0.50) K/uL Baso # (Auto) 0.04 (0-0.2) K/uL Comprehensive Metabolic Panel 04/23/22 04/24/22 Range/Units 15:58 04:00 Sodium 139 139 (136-145) mmol/L Potassium 3.9 3.5 (3.5-5.1) mmol/L Chloride 104 103 (98-107) mmol/L Carbon Dioxide 29 29 (21-32) mmol/L BUN 13 12 (6-23) mg/dl Creatinine 1.00 0.88 (0.6-1.4) mg/dl Glucose 88 109 H (70-99(Fasting)) mg/dl Calcium 8.6 8.8 (8.5-10.1) mg/dl AST 19 (13-39) U/L ALT 19 (7-52) U/L Alkaline Phosphatase 79 (34-104) U/L Total Protein 7.3 (6.0-8.3) gm/dl Albumin 4.0 (3.4-5.0) gm/dl Intake and Output 04/23/22 04/24/22 04/24/22 22:59 06:59 14:59 Other: Weight 119.1 kg 119.8 kg Weight Measurement Method Chair Scale Built in [facility] (1) Pulmonary edema Chronicity: acute Qualified Code(s): J81.0 - Acute pulmonary edema (2) HTN (hypertension) Hypertension type: primary hypertension Qualified Code(s): I10 - Essential (primary) hypertension
[2022-04-24] MEDS ORDERED: POTASSIUM CHLORIDE 10 MEQ TABCR PO ONE (09:55)
[2022-04-24] MEDS: lisinopril 5 MG TAB PO SCH (10:40)
[2022-04-24 11:22] LABS: Ferritin 110.4 ng/ml (8-388)
[2022-04-24] MEDS ORDERED: METOPROLOL TARTRATE 25 MG TAB PO STA (13:22)
[2022-04-24] MEDS: NITROGLYCERIN 2% OINTMENT 30GM TUBE EXT SCH ×2 (13:46→21:10)
--- NOTE | 2022-04-24 14:47 | Electrocardiogram Report ---
Test Reason : Blood Pressure : / mmHG Vent. Rate : 091 BPM Atrial Rate : 091 BPM P-R Int : 168 ms QRS Dur : 098 ms QT Int : 376 ms P-R-T Axes : 023 013 044 degrees QTc Int : 462 ms Sinus rhythm with occasional Premature ventricular complexes Otherwise normal ECG No previous ECGs available Confirmed by Prem Ford ([id number]) on 04/24/2022 2:47:22 PM Referred By: REFERRED SELF Confirmed By:Prem Ford
[2022-04-24] MEDS ORDERED: FUROSEMIDE INJ 20 MG/2 ML VIAL IV ONE (15:00)
--- NOTE | 2022-04-24 15:01 | Electrocardiogram Report ---
Test Reason : Blood Pressure : / mmHG Vent. Rate : 065 BPM Atrial Rate : 065 BPM P-R Int : 184 ms QRS Dur : 106 ms QT Int : 436 ms P-R-T Axes : 026 004 093 degrees QTc Int : 453 ms Normal sinus rhythm Abnormal ECG When compared with ECG of 23-APR-2022 15:54, (unconfirmed) Premature ventricular complexes are no longer Present T wave inversion now evident in Anterolateral leads Confirmed by Prem Ford ([id number]) on 04/24/2022 3:01:18 PM Referred By: REFERRED SELF Confirmed By:Prem Ford
--- NOTE | 2022-04-24 15:22 | Electrocardiogram Report ---
Test Reason : Blood Pressure : / mmHG Vent. Rate : 081 BPM Atrial Rate : 081 BPM P-R Int : 166 ms QRS Dur : 098 ms QT Int : 418 ms P-R-T Axes : 023 004 087 degrees QTc Int : 485 ms Normal sinus rhythm Nonspecific ST and T wave abnormality Prolonged QT Abnormal ECG When compared with ECG of 24-APR-2022 05:32, (unconfirmed) T wave inversion no longer evident in Anterior leads Confirmed by Prem Ford ([id number]) on 04/24/2022 3:22:16 PM Referred By: REFERRED SELF Confirmed By:Prem Ford
--- NOTE | 2022-04-24 16:54 | Hospitalist Progress Note ---
Date of Service April 24, 2022 Assessment & Plan (1) SOB (shortness of breath): Plan: Presented with shortness of breath and chest tightness Angina equivalent Findings are mildly elevated but has been decreasing Shortness of breath is better following admission Chest tightness is almost gone Will have cardiac cath tomorrow (2) Pulmonary edema: Plan: Has been receiving small doses of Lasix IV (3) Cardiomegaly: Plan: This is a 56yo M with HTN, [place], gout who presents with chest tightness and SOB. Was seen earlier this afternoon at urgent care and given nebulizer without much improvement of symptoms and was directed to ED for further evaluation and found to have cardiomegaly and pulmonary edema concerning for CHF. SOB, chest tightness and orthopnea since early this AM Denies previous dx of HTN,CHF, arrhythmia or [place] Chest CTA without pulmonary emboli identified. Moderate cardiomegaly. Small bilateral pleural effusions with interstitial pulmonary edema. Moderate aortic valvular calcification Given aspirin 324 and lasix 20mg IV x 1 in ED with good diuresis so far. Will plan on additional 10mg IV in AM and reassess volume Strict I&Os, added BNP to labs, low sodium diet, daily weights, 2D echo, repeat ECG in AM, cardiology consult ECG with NSR with frequent PVCs. HS troponin 53.9 in setting of uncontrolled BP - trend, monitor on tele Echo of the heart showed: LV systolic function is moderate to severely reduced with EF 35 to 40%, moderate concentric left ventricle hypertrophy, moderate global hypokinesis with severe hypokinesis of the base and posterior wall, left atrium is moderately dilated, aortic valve sclerosis without significant stenosis and there is mild MR Appreciate cardiology input and recommendation Cardiac cath tomorrow (4) HTN (hypertension): Plan: Uncontrolled since arrival, 170/106 during interview. Ordered 10mg IV Labetalol. Continue to monitor closely History of HTN per outpatient chart review but patient denies ever taking medications for this Does endorse recent weight gain, concern about ill-fitting cpap device Blood pressure seems to be stable at 149/91 (5) [place] on CPAP: Plan: Wears HS, 13 cwp DVT Ppx: SQ heparin Code status: FULL PCP: Minh Dispo: Admitted to PCU Admission and Anticipated Discharge Date Admission Date: April 23, 2022 Subjective 04/24/2022 The patient was seen and examined in telemetry unit He denies any more chest pressure and the shortness of breath is improved He will have cardiac cath tomorrow Review of Systems Review of Systems: All systems reviewed and are unremarkable except as noted below Physical Exam Physical Exam: Lying in bed comfortably Constitutional: well developed, well nourished and + obese; not ill appearing Eyes: PERRL, conjunctivae normal, anicteric sclerae ENMT: external ear and nose normal, oropharynx normal Neck: trachea midline, no thyromegaly Respiratory: no respiratory distress Auscultation: lungs clear to auscultation bilaterally Cardiovascular: Rate/Rhythm: regular rate and regular rhythm; not tachycardic Heart Sounds: normal S1 and normal S2; no murmur Extremities: + edema (1+ edema bilaterally) Gastrointestinal (Abdomen): Inspection/Auscultation: normal bowel sounds; abdomen not distended Percussion/Palpation: abdomen soft; abdomen nontender Musculoskeletal: No acute arthritis in any joint Neurologic: normal touch/pain/proprioception and moves all extremities; no focal motor deficits Psychiatric: A+Ox3, euthymic affect Lymphatic: no cervical or axillary lymphadenopathy Results & Data Results & Data ([facility]) Vital Signs (Past 12 Hours) Vital Signs Temp Pulse Pulse Resp BP BP Pulse Ox 04/24/22 15:15 37 C 80 16 142/91 H 99 04/24/22 13:46 80 18 131/85 94 04/24/22 10:43 92 H 18 148/95 H 96 04/24/22 07:58 73 18 142/95 H 96 04/24/22 07:58 18 96 04/24/22 06:30 74 14 97 04/24/22 06:30 140/94 04/24/22 06:20 56 L 14 88 L 04/24/22 06:10 66 19 94 04/24/22 06:00 66 15 93 04/24/22 06:00 136/90 04/24/22 05:50 68 20 92 04/24/22 05:40 67 20 95 04/24/22 05:34 136/95 04/24/22 05:34 70 16 94 04/24/22 05:30 81 31 H 95 04/24/22 05:20 87 13 92 04/24/22 05:10 62 20 92 04/24/22 05:00 65 20 93 04/24/22 04:50 68 23 93 O2 Del Method 01/04/23 15:15 Room Air 04/24/22 13:46 Room Air 04/24/22 10:43 Room Air 04/24/22 07:58 Room Air 04/24/22 07:58 Room Air 04/24/22 06:30 04/24/22 06:30 04/24/22 06:20 04/24/22 06:10 04/24/22 06:00 04/24/22 06:00 04/24/22 05:50 04/24/22 05:40 04/24/22 05:34 04/24/22 05:34 04/24/22 05:30 04/24/22 05:20 04/24/22 05:10 04/24/22 05:00 04/24/22 04:50 Laboratory Results Short CBC 04/24/22 Range/Units 04:00 WBC 5.89 (4.8-10.8) K/ul Hgb 14.4 (14.0-18.0) g/dl Hct 40.2 (40.1-51.0) % Plt Count 165 (130-400) K/uL BMP 04/24/22 04:00 Sodium 139 Potassium 3.5 Chloride 103 Carbon Dioxide 29 BUN 12 Creatinine 0.88 Glucose 109 H Calcium 8.8 Medications Administered Current Inpatient Medications Acetaminophen (Acetaminophen 325 Mg Tab) 650 mg PO Q4H PRN PRN Reason: Pain or Fever Stop: 05/23/22 22:01 Last Admin: 04/24/22 16:25 Dose: 650 mg Aspirin (Aspirin 81 Mg Ectab) 81 mg PO QAM [facility] Stop: 05/25/22 08:59 Furosemide (Furosemide Inj 20 Mg/2 Ml Vial) 20 mg IV DAILY [facility] Stop: 05/25/22 08:59 Heparin Sodium (Porcine) (Heparin Sod 5,000 Unit/0.5 Ml Vial) 5,000 units SQ Q8 [facility] Stop: 05/23/22 22:01 Last Admin: 04/24/22 13:46 Dose: 5,000 units Lisinopril (Lisinopril 5 Mg Tab) 5 mg PO QAM [facility] Stop: 05/24/22 09:59 Last Admin: 04/24/22 10:40 Dose: 5 mg Metoprolol Tartrate (Metoprolol Tartrate 25 Mg Tab) 25 mg PO BID [facility] Stop: 05/24/22 20:59 Multivitamins (Multivitamin Tab) 1 tab PO DAILY [facility] Stop: 05/24/22 08:59 Last Admin: 04/24/22 08:33 Dose: 1 tab Nitroglycerin (Nitroglycerin 2% Ointment 30gm Tube) 1 inch EXT Q6H [facility] Stop: 05/24/22 13:44 Last Admin: 04/24/22 13:46 Dose: 1 inch Ondansetron HCl (Ondansetron Inj 2 Mg/Ml 2 Ml Vial) 4 mg IV Q6H PRN PRN Reason: Nausea Stop: 05/23/22 22:01 Polyethylene Glycol (Polyethylene (Miralax) 17 Gm Pack) 17 gm PO DAILY PRN PRN Reason: Constipation Stop: 05/23/22 22:01 (1) Pulmonary edema Chronicity: acute Qualified Code(s): J81.0 - Acute pulmonary edema (2) HTN (hypertension) Hypertension type: primary hypertension Qualified Code(s): I10 - Essential (primary) hypertension
[2022-04-24] MEDS ORDERED: oxyCODONE HCL IR 5 MG TAB (IMMEDIATE RELEASE) PO STA (19:39)
[2022-04-24] MEDS ORDERED: METOPROLOL SUCC 25MG EXT REL TAB PO SCH (21:00)
[2022-04-24] MEDS: METOPROLOL TARTRATE 25 MG TAB PO SCH (21:10)
[2022-04-25] MEDS: ACETAMINOPHEN 325 MG TAB PO PRN ×2 (02:52→09:07)
[2022-04-25] MEDS: NITROGLYCERIN 2% OINTMENT 30GM TUBE EXT SCH ×2 (02:53→08:00)
[2022-04-25] MEDS: HEPARIN SOD 5,000 UNIT/0.5 ML VIAL SQ SCH ×3 (06:09→20:14)
[2022-04-25 06:24] LABS: Basophils # (auto) 0.05 K/uL (0-0.2); Eosinophils # (auto) 0.18 K/uL (0-0.50); Eosinophils % (auto) 3.7 %; Hematocrit (blood only) 40.1 % (40.1-51.0); Hemoglobin 14.3 g/dl (14.0-18.0); Immature Granulocytes # (auto) 0.03 K/uL (0.00-0.02); Immature Granulocytes % (auto) 0.6 %; Lymphocytes # (auto) 1.75 K/uL (1.2-3.4); Lymphocytes % (auto) 35.6 %; Mean Corpuscular Hemoglobin 32.9 pg (25.0-34.0); Mean Corpuscular Hgb Conc 35.7 g/dL (32.0-36.0); Mean Corpuscular Volume 92.2 fL (80.0-100.0); Mean Platelet Volume 9.4 fL (9.4-12.4); Monocytes # (auto) 0.64 K/uL (0.24-0.82); Neutrophils # (auto) 2.26 K/uL (1.4-6.5); Neutrophils % (auto) 46.1 %; Platelet Count 171 K/uL (130-400); RDW Coefficient of Variation 12.2 % (11.5-14.5); RDW Standard Deviation 41.1 fL (36.4-46.3); Red Blood Count 4.35 M/uL (4.63-6.08); White Blood Count 4.91 K/ul (4.8-10.8)
[2022-04-25 06:58] LABS: Calcium 8.5 mg/dl (8.5-10.1); Creatinine Clr Calc Pharmacy 99.7 ml/min; Est GFR (African American) 90.5 ml/min; Est GFR (Non-African American) 78.1 ml/min; Magnesium 2.1 mg/dl (1.7-2.4); Potassium 3.6 mmol/L (3.5-5.1)
[2022-04-25] MEDS ORDERED: FUROSEMIDE INJ 20 MG/2 ML VIAL IV SCH (09:00)
[2022-04-25] MEDS: METOPROLOL TARTRATE 25 MG TAB PO SCH ×2 (09:02→20:14)
[2022-04-25] MEDS: lisinopril 5 MG TAB PO SCH (09:02)
[2022-04-25] MEDS: MULTIVITAMIN TAB PO SCH (09:03)
[2022-04-25] MEDS: ASPIRIN 81 MG ECTAB PO SCH (09:03)
--- NOTE | 2022-04-25 11:52 | Cardiology Progress Note ---
Date of Service April 25, 2022 Assessment & Plan (1) Acute heart failure with reduced ejection fraction and diastolic dysf unction: (2) Cardiomyopathy: (3) HTN (hypertension): (4) Systolic murmur: (5) Aortic valve sclerosis: Plan 56-year-old patient mated with acute heart failure with reduced ejection fraction. This is a new diagnosis. We will proceed with cardiac catheterization today. A.m. diuretic dose on hold. Likely administer IV furosemide post cardiac catheterization. Continue lisinopril and metoprolol as ordered. Further recommendations pending result of cardiac catheterization. Admission and Anticipated Discharge Date Admission Date: April 23, 2022 Subjective Patient seen examined the bedside. Feeling better today. Denies chest pain or shortness of breath at rest. Able to sleep better with his own CPAP machine. Telemetry reveals sinus bradycardia in the 50s. Review of Systems Review of Systems: All systems reviewed & are unremarkable except as noted in Subjective Physical Exam Constitutional: well nourished; no acute distress Respiratory: normal respiratory effort; no respiratory distress, no labored breathing and no retractions Auscultation: + rales (Bases bilateral); no rhonchi and no wheezes Cardiovascular: Rate/Rhythm: regular rate and regular rhythm Heart Sounds: normal S1, normal S2 and + murmur (2/6 systolic ejection murmur heard best at the base) Vessels: femoral pulses present and radial pulses present; no JVD and no carotid bruit Extremities: no edema Gastrointestinal (Abdomen): Inspection/Auscultation: normal bowel sounds; abdomen not distended Percussion/Palpation: abdomen soft; abdomen nontender, no guarding and abdomen not rigid Neurologic: CN's II-XI intact bilaterally and moves all extremities; no focal motor deficits Psychiatric: A+Ox3, euthymic affect Results & Data ([facility]) Vital Signs (Past 12 Hours) Vital Signs Temp Pulse Resp BP Pulse Ox O2 Del Method 04/25/22 07:54 36.4 C L 65 19 112/69 97 BiPAP 04/25/22 02:54 36.4 C L 54 L 16 112/70 96 CPAP (1) HTN (hypertension) Hypertension type: primary hypertension Qualified Code(s): I10 - Essential (primary) hypertension
--- NOTE | 2022-04-25 11:53 | Pre Anesthesia Assessment ---
Date of Service April 25, 2022 Pre Sedation Assessment Vital Signs Temp Pulse Pulse Resp BP BP Pulse Ox 04/26/22 07:09 36.5 C 57 L 18 130/82 94 04/26/22 03:22 36.4 C L 56 L 18 100/65 95 04/25/22 22:16 66 04/25/22 18:11 76 04/25/22 23:12 36.6 C 64 18 95/61 L 95 04/25/22 19:45 37.2 C 74 18 118/79 92 04/25/22 17:41 119/78 04/25/22 16:41 67 67 H 128/82 95 04/25/22 16:11 70 17 128/82 95 04/25/22 15:41 67 17 137/93 95 04/25/22 15:26 36.7 C 64 17 133/87 94 04/25/22 15:00 65 16 108/85 92 04/25/22 13:28 70 16 126/92 98 04/25/22 12:02 37.1 C 65 17 129/86 94 O2 Del Method 04/26/22 07:09 Room Air 04/26/22 03:22 CPAP 04/25/22 22:16 04/25/22 18:11 04/25/22 23:12 CPAP 04/25/22 19:45 Room Air 04/25/22 17:41 04/25/22 16:41 Room Air 04/25/22 16:11 Room Air 04/25/22 15:41 Room Air 04/25/22 15:26 Room Air 04/25/22 15:00 Room Air 04/25/22 13:28 Room Air 04/25/22 12:02 Room Air Cardiovascular + regular rate and + regular rhythm + S1 normal, + S2 normal and + murmur + radial pulses present; no JVD and no carotid bruit no edema Respiratory + rales (Bases bilateral); no rhonchi and no wheezes Pre-Sedation Airway Assessment Smoking Status: Never smoker Mallampati Class: III ASA: ASA3 NPO Status Date of Last Intake of Fluids: 04/25/22 Date of Last Intake of Solid Food: 04/24/22 Procedure Planning Contraindications for Sedation: none Current Medications Reviewed: Yes Notes The planned sedation has been discussed with the patient. Informed Consent was obtained. I have identified the patient, determined the appropriateness of sedation and have assessed the patient immediately prior to the procedure. All medicine(s) and interventions are by my order.
--- NOTE | 2022-04-25 14:17 | Hospitalist Progress Note ---
Date of Service April 25, 2022 Assessment & Plan (1) Acute heart failure with reduced ejection fraction and diastolic dysf unction: Plan: Presented with shortness of breath and chest tightness Angina equivalent Findings are mildly elevated but has been decreasing Shortness of breath is better following admission Chest tightness is almost gone Will have cardiac cath tomorrow (2) SOB (shortness of breath): Plan: As above (3) Pulmonary edema: Plan: Secondary to Acute heart failure with reduced ejection fraction and diastolic dy sfunction Has been receiving small doses of Lasix IV (4) Cardiomegaly: Plan: This is a 56yo M with HTN, [place], gout who presents with chest tightness and SOB. Was seen earlier this afternoon at urgent care and given nebulizer without much improvement of symptoms and was directed to ED for further evaluation and found to have cardiomegaly and pulmonary edema concerning for CHF. SOB, chest tightness and orthopnea since early this AM Denies previous dx of HTN,CHF, arrhythmia or [place] Chest CTA without pulmonary emboli identified. Moderate cardiomegaly. Small bilateral pleural effusions with interstitial pulmonary edema. Moderate aortic valvular calcification Given aspirin 324 and lasix 20mg IV x 1 in ED with good diuresis so far. Will plan on additional 10mg IV in AM and reassess volume Strict I&Os, added BNP to labs, low sodium diet, daily weights, 2D echo, repeat ECG in AM, cardiology consult ECG with NSR with frequent PVCs. HS troponin 53.9 in setting of uncontrolled BP - trend, monitor on tele Echo of the heart showed: LV systolic function is moderate to severely reduced with EF 35 to 40%, moderate concentric left ventricle hypertrophy, moderate global hypokinesis with severe hypokinesis of the base and posterior wall, left atrium is moderately dilated, aortic valve sclerosis without significant stenosis and there is mild MR Appreciate cardiology input and recommendation Remains medically stable without any cardiac symptoms Will have cardiac cath today (5) HTN (hypertension): Plan: Uncontrolled since arrival, 170/106 during interview. Ordered 10mg IV Labetalol. Continue to monitor closely History of HTN per outpatient chart review but patient denies ever taking medications for this Does endorse recent weight gain, concern about ill-fitting cpap device Blood pressure seems to be stable at 149/91 (6) [place] on CPAP: Plan: Wears HS, 13 cwp DVT Ppx: SQ heparin Code status: FULL PCP: Minh Dispo: Admitted to PCU Admission and Anticipated Discharge Date Admission Date: April 23, 2022 Subjective 04/24/2022 The patient was seen and examined in telemetry unit He denies any more chest pressure and the shortness of breath is improved He will have cardiac cath tomorrow 04/25/2022 The patient was seen and examined in telemetry unit He remained stable and complains to have some headache likely secondary to Nitropaste Denies any more chest pain/chest pressure or shortness of breath Will have cardiac catheterization today Review of Systems Review of Systems: All systems reviewed and are unremarkable except as noted below Physical Exam Physical Exam: Sitting on a chair without any acute distress Constitutional: well developed, well nourished and + obese; not ill appearing Eyes: PERRL, conjunctivae normal, anicteric sclerae ENMT: external ear and nose normal, oropharynx normal Neck: trachea midline, no thyromegaly Respiratory: no respiratory distress Auscultation: + crackles (Minimal bibasilar crackles) Cardiovascular: Rate/Rhythm: regular rate and regular rhythm; not tachycardic Heart Sounds: normal S1 and normal S2; no murmur Extremities: + edema (Edema is improved and only trace edema remains) Gastrointestinal (Abdomen): Inspection/Auscultation: normal bowel sounds; abdomen not distended Percussion/Palpation: abdomen soft; abdomen nontender Neurologic: normal touch/pain/proprioception and moves all extremities; no focal motor deficits Psychiatric: A+Ox3, euthymic affect Lymphatic: no cervical or axillary lymphadenopathy Results & Data Results & Data ([facility]) Vital Signs (Past 12 Hours) Vital Signs Temp Pulse Resp BP BP Pulse Ox O2 Del Method 04/25/22 13:28 70 16 126/92 98 Room Air 04/25/22 12:02 37.1 C 65 17 129/86 94 Room Air 04/25/22 07:54 36.4 C L 65 19 112/69 97 BiPAP 04/25/22 02:54 36.4 C L 54 L 16 112/70 96 CPAP Laboratory Results Short CBC 04/25/22 Range/Units 05:54 WBC 4.91 (4.8-10.8) K/ul Hgb 14.3 (14.0-18.0) g/dl Hct 40.1 (40.1-51.0) % Plt Count 171 (130-400) K/uL BMP 04/25/22 05:54 Sodium 140 Potassium 3.6 Chloride 105 Carbon Dioxide 28 BUN 18 Creatinine 1.06 Glucose 101 H Calcium 8.5 Medications Administered Current Inpatient Medications Acetaminophen (Acetaminophen 325 Mg Tab) 650 mg PO Q4H PRN PRN Reason: Pain or Fever Stop: 05/23/22 22:01 Last Admin: 04/25/22 09:07 Dose: 650 mg Aspirin (Aspirin 81 Mg Ectab) 81 mg PO QAM [facility] Stop: 05/25/22 08:59 Last Admin: 04/25/22 09:03 Dose: 81 mg Furosemide (Furosemide Inj 20 Mg/2 Ml Vial) 20 mg IV DAILY [facility] Stop: 05/25/22 08:59 Heparin Sodium (Porcine) (Heparin Sod 5,000 Unit/0.5 Ml Vial) 5,000 units SQ Q8 [facility] Stop: 05/23/22 22:01 Last Admin: 04/25/22 06:09 Dose: 5,000 units Lisinopril (Lisinopril 5 Mg Tab) 5 mg PO QAM [facility] Stop: 05/24/22 09:59 Last Admin: 04/25/22 09:02 Dose: 5 mg Metoprolol Tartrate (Metoprolol Tartrate 25 Mg Tab) 25 mg PO BID [facility] Stop: 05/24/22 20:59 Last Admin: 04/25/22 09:02 Dose: 25 mg Multivitamins (Multivitamin Tab) 1 tab PO DAILY [facility] Stop: 05/24/22 08:59 Last Admin: 04/25/22 09:03 Dose: 1 tab Ondansetron HCl (Ondansetron Inj 2 Mg/Ml 2 Ml Vial) 4 mg IV Q6H PRN PRN Reason: Nausea Stop: 05/23/22 22:01 Polyethylene Glycol (Polyethylene (Miralax) 17 Gm Pack) 17 gm PO DAILY PRN PRN Reason: Constipation Stop: 05/23/22 22:01 (1) Pulmonary edema Chronicity: acute Qualified Code(s): J81.0 - Acute pulmonary edema (2) HTN (hypertension) Hypertension type: primary hypertension Qualified Code(s): I10 - Essential (primary) hypertension
[2022-04-25] MEDS ORDERED: HEPARIN (PORCINE) 1000 UNIT/ML 10 ML (CATH LAB USE ONLY) ONE (14:22)
[2022-04-25] MEDS ORDERED: niCARdipine HCL INJ 2.5 MG/ML 10 ML AMP ONE (14:22)
[2022-04-25] MEDS ORDERED: fentaNYL citrate 100 MCG/2 ML VIAL ONE (14:22)
[2022-04-25] MEDS ORDERED: MIDAZOLAM HCL 1 MG/ML 2ML VIAL ONE (14:22)
[2022-04-25] MEDS ORDERED: NITROGLYCERIN/D5W 100MCG/ML 20ML SYR ONE (14:23)
--- NOTE | 2022-04-25 15:28 | Post Anesthesia Assessment ---
Date of Service April 25, 2022 Post Sedation Assessment Vital Signs Temp Pulse Pulse Resp BP BP Pulse Ox 04/26/22 07:09 36.5 C 57 L 18 130/82 94 04/26/22 03:22 36.4 C L 56 L 18 100/65 95 04/25/22 22:16 66 04/25/22 18:11 76 04/25/22 23:12 36.6 C 64 18 95/61 L 95 04/25/22 19:45 37.2 C 74 18 118/79 92 04/25/22 17:41 119/78 04/25/22 16:41 67 67 H 128/82 95 04/25/22 16:11 70 17 128/82 95 04/25/22 15:41 67 17 137/93 95 04/25/22 15:26 36.7 C 64 17 133/87 94 04/25/22 15:00 65 16 108/85 92 04/25/22 13:28 70 16 126/92 98 04/25/22 12:02 37.1 C 65 17 129/86 94 O2 Del Method 04/26/22 07:09 Room Air 04/26/22 03:22 CPAP 04/25/22 22:16 04/25/22 18:11 04/25/22 23:12 CPAP 04/25/22 19:45 Room Air 04/25/22 17:41 04/25/22 16:41 Room Air 04/25/22 16:11 Room Air 04/25/22 15:41 Room Air 04/25/22 15:26 Room Air 04/25/22 15:00 Room Air 04/25/22 13:28 Room Air 04/25/22 12:02 Room Air Recovery Score Activity: Moves 4 extremities Respiration: Deep Breath/Cough Circulation: +/-20% PreAnes Value Consciousness: Fully Awake Oxygen Saturation: > 92% On Room Air Post Anesthesia Score: 10 Discharge Sedation Level of Care: Phase I Post Sedation Plan On clinical assessment, the patient appears to have tolerated the sedation without complications. Patient is recovering as anticipated. Patient will continue to be monitored by nursing and may be discharged when sedation discharge criteria are met per below protocol. Upon Completions of procedure up to 15 minutes continue every 5 minute vital signs and the P.A.R. score; then discharge to a Phase I or Fast Track to Phase II per the following guidelines: * Discharge Patient to appropriate Phase II area if PAR is 8 or greater or return to pre- procedure baseline. The post - procedure orders will be as directed. * If PAR score is less than 8 or not return to pre-procedure baseline then patient will follow Phase I monitoring till PAR is reached for Phase II. The Phase I may be done in procedure room or may call to secure a Phase I area. * If naloxone or flumazenil are used for reversal, hold in Phase I for continued monitoring from when last reversal dose was given for a minimum of 60 minutes or longer pending the nurse and/or physician discretion of patient condition before discharge to Phase II. Please call the Sedation Physician to re-evaluate and complete post-note for discharge to Phase II area. Do NOT discharge from procedure sedation or Phase 1 until post- sedation evaluation note is complete by procedure /sedation MD Sedation Discharge Instructions to be given to the patient at discharge to home.
--- NOTE | 2022-04-25 15:38 | Cardiac Catheterization ---
Cardiac Cath Procedure Full Procedure Date April 25, 2022 Pre-Procedure Diagnosis Pre-Procedure Diagnosis: CHF and Cardiomyopathy AUC Score AUC Score: 7 Post-Procedure Diagnosis Post-Procedure Diagnosis: Normal Coronary Arteries Procedure(s) Performed Procedure(s) Performed: Coronary Angiography and Left Heart Cath Geriatric Physical Therapist Shon Michelle DO Environmental Designer(s) Edar ROLL INSPECTOR Estimated Blood Loss Estimated Blood Loss: 5cc Medication(s) Medication(s): Fentanyl, Heparin, Lidocaine 1%, Nicardipine, Nitroglycerin and Versed Summary of Findings Normal coronary arteries Hemodynamics Rest Ao:: 105/75/91 Final Ao: 117/83/101 LV: 118/3/15 Recommendations Recommendations: Management Recommendatons Specimens Specimens: None Radiation Exposure (mGy) 1105 Contrast (mls) 40 Fluids (cc crystalloids) Fluids (cc crystalloids): 70 Nss Drains Drains: N/A Anesthesia Moderate sedation. Start 1439. End 1457. Sedation monitor: Monk. I attest to the content of the Intraoperative Record and any orders documented therein. Any exceptions are noted below. ACC Data: Claims Administrator Cardiac Status Clinical evaluation leading to the procedure 56-year-old patient presented emergency department with acute decompensated heart failure with reduced ejection fraction. Echocardiogram demonstrating LV systolic dysfunction with ejection fraction 35-39%. There is a area of moderate posterior wall hypokinesis otherwise mild global hypokinesis noted. CAD Presenation: Unstable angina Heart Failure: NYHA Class: CCS III Coronary Anatomy Dominant: Right Left Main (% Stenosis): Normal LAD (% Stenosis): Normal D1 (% Stenosis): Normal Circumflex (% Stenosis): Normal OM1 (% Stenosis): Normal RCA (% Stenosis): Normal R PDA (% Stenosis): Normal R PL1 (% Stenosis): Normal Ramus (% Stenosis): Normal Diagnostic Physicians Name: Shon Michelle DO Closure Device Percutaneous Entry Location: Radial Closure Device: Radial Band Recommendations: Management Recommendatons Intraprocedure Events Significant Disection: No Perforation: No
[2022-04-25] MEDS ORDERED: FUROSEMIDE INJ 20 MG/2 ML VIAL IV ONE (18:00)
[2022-04-26] MEDS: HEPARIN SOD 5,000 UNIT/0.5 ML VIAL SQ SCH ×3 (06:18→21:48)
[2022-04-26] MEDS: METOPROLOL TARTRATE 25 MG TAB PO SCH ×2 (07:59→21:49)
[2022-04-26] MEDS: ASPIRIN 81 MG ECTAB PO SCH (07:59)
[2022-04-26] MEDS: lisinopril 5 MG TAB PO SCH (07:59)
[2022-04-26] MEDS: MULTIVITAMIN TAB PO SCH (07:59)
[2022-04-26 08:53] LABS: Basophils # (auto) 0.03 K/uL (0-0.2); Basophils % (auto) 0.6 %; Eosinophils # (auto) 0.17 K/uL (0-0.50); Eosinophils % (auto) 3.6 %; Hematocrit (blood only) 41.8 % (40.1-51.0); Hemoglobin 14.7 g/dl (14.0-18.0); Immature Granulocytes # (auto) 0.04 K/uL (0.00-0.02); Immature Granulocytes % (auto) 0.9 %; Lymphocytes # (auto) 1.49 K/uL (1.2-3.4); Lymphocytes % (auto) 31.7 %; Mean Corpuscular Hemoglobin 33.2 pg (25.0-34.0); Mean Corpuscular Hgb Conc 35.2 g/dL (32.0-36.0); Mean Corpuscular Volume 94.4 fL (80.0-100.0); Mean Platelet Volume 9.3 fL (9.4-12.4); Monocytes # (auto) 0.67 K/uL (0.24-0.82); Monocytes % (auto) 14.3 %; Neutrophils % (auto) 48.9 %; Platelet Count 180 K/uL (130-400); RDW Coefficient of Variation 12.4 % (11.5-14.5); RDW Standard Deviation 43.1 fL (36.4-46.3); Red Blood Count 4.43 M/uL (4.63-6.08)
[2022-04-26 09:16] LABS: BUN Creatinine Ratio 19.1 (10-20); Calcium 8.9 mg/dl (8.5-10.1); Creatinine Clr Calc Pharmacy 94.3 ml/min; Est GFR (African American) 86.5 ml/min; Est GFR (Non-African American) 74.6 ml/min
[2022-04-26] MEDS ORDERED: FUROSEMIDE 40 MG/4 ML VIAL IV ONE (09:55)
--- NOTE | 2022-04-26 09:59 | Cardiology Progress Note ---
Date of Service April 26, 2022 Assessment & Plan (1) Acute heart failure with reduced ejection fraction and diastolic dysf unction: (2) Cardiomyopathy: (3) HTN (hypertension): (4) Systolic murmur: (5) Aortic valve sclerosis: Plan 56-year-old patient mated with acute heart failure with reduced ejection fraction. Cardiac catheterization demonstrating normal coronary anatomy. Mildly elevated LVEDP. 40mg IV lasix x1 now with an additional dose this evening. Continue lisinopril. Transition metoprolol to succinate formulation. Add aldactone 25mg daily. Possible discharge in AM. Admission and Anticipated Discharge Date Admission Date: April 23, 2022 Subjective Patient seen and examined at the bedside. Denies CP. More SOB this AM. NO orth opnea or PND. SR on telemetry. Review of Systems Review of Systems: All systems reviewed & are unremarkable except as noted in Subjective Physical Exam Constitutional: well nourished; no acute distress ENMT: Mallampati Class: III Respiratory: normal respiratory effort; no respiratory distress, no labored breathing and no retractions Auscultation: + rales (Bases bilateral); no rhonchi and no wheezes Cardiovascular: Rate/Rhythm: regular rate and regular rhythm Heart Sounds: normal S1, normal S2 and + murmur Vessels: femoral pulses present and radial pulses present; no JVD and no carotid bruit Extremities: no edema Gastrointestinal (Abdomen): Inspection/Auscultation: normal bowel sounds; abdomen not distended Percussion/Palpation: abdomen soft; abdomen nontender, no guarding and abdomen not rigid Neurologic: CN's II-XI intact bilaterally and moves all extremities; no focal motor deficits Psychiatric: A+Ox3, euthymic affect Results & Data ([facility]) Vital Signs (Past 12 Hours) Vital Signs Temp Pulse Pulse Resp BP Pulse Ox O2 Del Method 04/26/22 07:09 36.5 C 57 L 18 130/82 94 Room Air 04/26/22 03:22 36.4 C L 56 L 18 100/65 95 CPAP 04/25/22 22:16 66 04/25/22 23:12 36.6 C 64 18 95/61 L 95 CPAP (1) HTN (hypertension) Hypertension type: primary hypertension Qualified Code(s): I10 - Essential (primary) hypertension
[2022-04-26] MEDS: SPIRONOLACTONE 25 MG TAB PO SCH (11:25)
--- NOTE | 2022-04-26 16:49 | Hospitalist Progress Note ---
Date of Service April 26, 2022 Assessment & Plan (1) Acute heart failure with reduced ejection fraction and diastolic dysf unction: Plan: CardiacPresented with shortness of breath and chest tightness Angina equivalent Findings are mildly elevated but has been decreasing Shortness of breath is better following admission Chest tightness is almost gone Status post cath with clean coronaries Further management is as below (2) SOB (shortness of breath): Plan: As above No shortness of breath at rest (3) Pulmonary edema: Plan: Secondary to Acute heart failure with reduced ejection fraction and diastolic dysfunction Has been receiving small doses of Lasix IV Got Lasix 40 mg IV in the morning and further Lasix dose will be adjusted 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 Was seen earlier this afternoon at urgent care and given nebulizer without much improvement of symptoms and was directed to ED for further evaluation and found to have cardiomegaly and pulmonary edema concerning for CHF. SOB, chest tightness and orthopnea since early this AM Denies previous dx of HTN,CHF, arrhythmia or [place] Chest CTA without pulmonary emboli identified. Moderate cardiomegaly. Small bilateral pleural effusions with interstitial pulmonary edema. Moderate aortic valvular calcification Given aspirin 324 and lasix 20mg IV x 1 in ED with good diuresis so far. Will plan on additional 10mg IV in AM and reassess volume Strict I&Os, added BNP to labs, low sodium diet, daily weights, 2D echo, repeat ECG in AM, cardiology consult ECG with NSR with frequent PVCs. HS troponin 53.9 in setting of uncontrolled BP - trend, monitor on tele Echo of the heart showed: LV systolic function is moderate to severely reduced with EF 35 to 40%, moderate concentric left ventricle hypertrophy, moderate global hypokinesis with severe hypokinesis of the base and posterior wall, left atrium is moderately dilated, aortic valve sclerosis without significant judith nosis and there is mild MR Appreciate cardiology input and recommendation Remains medically stable without any cardiac symptoms Has been getting lisinopril 5 mg once a day Has been on metoprolol tartrate 25 mg twice daily-will be transition to succinate likely tomorrow prior to discharge (5) HTN (hypertension): Plan: Uncontrolled since arrival, 170/106 during interview. Ordered 10mg IV Labetalol. Continue to monitor closely History of HTN per outpatient chart review but patient denies ever taking medications for this Does endorse recent weight gain, concern about ill-fitting cpap device Blood pressure seems to be stable at 149/91 Blood pressure remains stable (6) [place] on CPAP: Plan: Wears HS, 13 cwp DVT Ppx: SQ heparin Code status: FULL PCP: Minh Dispo: Admitted to PCU Admission and Anticipated Discharge Date Admission Date: April 23, 2022 Subjective 04/24/2022 The patient was seen and examined in telemetry unit He denies any more chest pressure and the shortness of breath is improved He will have cardiac cath tomorrow 04/25/2022 The patient was seen and examined in telemetry unit He remained stable and complains to have some headache likely secondary to Nitropaste Denies any more chest pain/chest pressure or shortness of breath Will have cardiac catheterization today 04/26/2022 The patient was seen and examined in telemetry unit He is a status post cardiac cath which showed normal coronary arteries Did have some shortness of breath this morning otherwise no other symptom He will likely go home tomorrow Review of Systems Review of Systems: All systems reviewed and are unremarkable except as noted below Physical Exam Physical Exam: Sitting on a chair without any acute distress Constitutional: well developed, well nourished and + obese; not ill appearing Eyes: PERRL, conjunctivae normal, anicteric sclerae ENMT: external ear and nose normal, oropharynx normal Neck: trachea midline, no thyromegaly Respiratory: no respiratory distress Auscultation: lungs clear to auscultation bilaterally and + crackles (Minimal bibasilar crackles) Cardiovascular: Rate/Rhythm: regular rate and regular rhythm; not tachycardic Heart Sounds: normal S1 and normal S2; no murmur Extremities: + edema (Edema is improved and only trace edema remains) Gastrointestinal (Abdomen): Inspection/Auscultation: normal bowel sounds; abdomen not distended Percussion/Palpation: abdomen soft; abdomen nontender Neurologic: normal touch/pain/proprioception and moves all extremities; no focal motor deficits Psychiatric: A+Ox3, euthymic affect Lymphatic: no cervical or axillary lymphadenopathy Results & Data Results & Data ([facility]) Vital Signs (Past 12 Hours) Vital Signs Temp Pulse Pulse Resp BP Pulse Ox O2 Del Method 04/26/22 16:19 62 04/26/22 15:10 37.2 C 73 18 108/69 96 Room Air 04/26/22 13:14 37.1 C 69 18 106/67 91 Room Air 04/26/22 08:00 58 L 04/26/22 07:09 36.5 C 57 L 18 130/82 94 Room Air Laboratory Results Short CBC 04/26/22 Range/Units 08:27 WBC 4.70 L (4.8-10.8) K/ul Hgb 14.7 (14.0-18.0) g/dl Hct 41.8 (40.1-51.0) % Plt Count 180 (130-400) K/uL BMP 04/26/22 08:27 Sodium 140 Potassium 4.0 Chloride 105 Carbon Dioxide 30 BUN 21 Creatinine 1.10 Glucose 98 Calcium 8.9 Medications Administered Current Inpatient Medications Acetaminophen (Acetaminophen 325 Mg Tab) 650 mg PO Q4H PRN PRN Reason: Pain or Fever Stop: 05/23/22 22:01 Last Admin: 04/25/22 09:07 Dose: 650 mg Aspirin (Aspirin 81 Mg Ectab) [address] [facility] Stop: 05/25/22 08:59 Last Admin: 04/26/22 07:59 Dose: 81 mg Furosemide (Furosemide Inj 20 Mg/2 Ml Vial) 20 mg IV DAILY [facility] Stop: 05/25/22 08:59 Furosemide (Furosemide Inj 20 Mg/2 Ml Vial) 20 mg IV 1800 ONE Stop: 04/26/22 18:01 Heparin Sodium (Porcine) (Heparin Sod 5,000 Unit/0.5 Ml Vial) 5,000 units SQ Q8 [facility] Stop: 05/23/22 22:01 Last Admin: 04/26/22 15:30 Dose: Not Given Lisinopril (Lisinopril 5 Mg Tab) [address] [facility] Stop: 05/24/22 09:59 Last Admin: 04/26/22 07:59 Dose: 5 mg Metoprolol Tartrate (Metoprolol Tartrate 25 Mg Tab) [address] [facility] Stop: 05/24/22 20:59 Last Admin: 04/26/22 07:59 Dose: 25 mg Multivitamins (Multivitamin Tab) 1 tab PO DAILY [facility] Stop: 05/24/22 08:59 Last Admin: 04/26/22 07:59 Dose: 1 tab Ondansetron HCl (Ondansetron Inj 2 Mg/Ml 2 Ml Vial) 4 mg IV Q6H PRN PRN Reason: Nausea Stop: 05/23/22 22:01 Polyethylene Glycol (Polyethylene (Miralax) 17 Gm Pack) 17 gm PO DAILY PRN PRN Reason: Constipation Stop: 05/23/22 22:01 Spironolactone (Spironolactone 25 Mg Tab) 25 mg PO [facility] Stop: 05/26/22 10:14 Last Admin: 04/26/22 11:25 Dose: 25 mg (1) Pulmonary edema Chronicity: acute Qualified Code(s): J81.0 - Acute pulmonary edema (2) HTN (hypertension) Hypertension type: primary hypertension Qualified Code(s): I10 - Essential (primary) hypertension
[2022-04-26] MEDS ORDERED: FUROSEMIDE INJ 20 MG/2 ML VIAL IV ONE (18:00)
[2022-04-27] MEDS: HEPARIN SOD 5,000 UNIT/0.5 ML VIAL SQ SCH (06:25)
[2022-04-27 07:07] LABS: Basophils # (auto) 0.05 K/uL (0-0.2); Basophils % (auto) 0.9 %; Eosinophils # (auto) 0.22 K/uL (0-0.50); Eosinophils % (auto) 4.1 %; Hematocrit (blood only) 40.2 % (40.1-51.0); Hemoglobin 14.4 g/dl (14.0-18.0); Immature Granulocytes # (auto) 0.04 K/uL (0.00-0.02); Immature Granulocytes % (auto) 0.7 %; Lymphocytes # (auto) 1.86 K/uL (1.2-3.4); Lymphocytes % (auto) 34.6 %; Mean Corpuscular Hemoglobin 33.6 pg (25.0-34.0); Mean Corpuscular Hgb Conc 35.8 g/dL (32.0-36.0); Mean Corpuscular Volume 93.7 fL (80.0-100.0); Mean Platelet Volume 9.3 fL (9.4-12.4); Monocytes # (auto) 0.67 K/uL (0.24-0.82); Monocytes % (auto) 12.5 %; Neutrophils # (auto) 2.53 K/uL (1.4-6.5); Neutrophils % (auto) 47.2 %; Platelet Count 180 K/uL (130-400); RDW Coefficient of Variation 12.4 % (11.5-14.5); RDW Standard Deviation 42.7 fL (36.4-46.3); Red Blood Count 4.29 M/uL (4.63-6.08); White Blood Count 5.37 K/ul (4.8-10.8)
[2022-04-27 07:32] LABS: BUN Creatinine Ratio 19.7 (10-20); Calcium 8.7 mg/dl (8.5-10.1); Creatinine Clr Calc Pharmacy 83.2 ml/min; Est GFR (African American) 72.7 ml/min; Est GFR (Non-African American) 62.7 ml/min; Magnesium 2.2 mg/dl (1.7-2.4); Potassium 3.7 mmol/L (3.5-5.1)
[2022-04-27] MEDS: SPIRONOLACTONE 25 MG TAB PO SCH (09:13)
[2022-04-27] MEDS: lisinopril 5 MG TAB PO SCH (09:13)
[2022-04-27] MEDS: MULTIVITAMIN TAB PO SCH (09:13)
[2022-04-27] MEDS: ASPIRIN 81 MG ECTAB PO SCH (09:13)
[2022-04-27] MEDS: METOPROLOL TARTRATE 25 MG TAB PO SCH (09:13)
--- NOTE | 2022-04-27 12:01 | Discharge Summary ---
Date of Service April 27, 2022 Admission HPI Per Admitting Provider This is a 56yo M with HTN, [place], gout who presents with chest tightness and SOB. Was seen earlier this afternoon at urgent care and given nebulizer without much improvement of symptoms and was directed to ED for further evaluation. Noticed some heart racing prior to Atul and thought he was drinking too much caffeine so cut out coffee. Has not had recurrent palpitations since then but did wake up with chest tightness and inability to fully catch his breath. Has not been as active lately since weather is colder and has gained some weight. Has a dry cough and orthopnea today requiring him to sit in bedside chair during interview. Endorses small amount of leg swelling but no junior chest pain. Recent travel to [facility] and [place]. Does not regularly take meds besides a multivitamin. Uses his cpap every night but states he needs to get the face strap replaced because it isn't sealing well. Has a diagnosis of HTN in outpatient chart but has never been on medications. No fever, chills, lightheadedness, CP, wheezing, nausea, vomiting, abdominal pain, dysuria, diarrhea or constipation. 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 Admission Exam Per Admitting Provider NAD, well developed Lungs: Good air entry b/l, no wheezing, b/l lower lobe rales Cardiac: Normal S1/S2, with systolic murmur Abd: ND, NT, soft MSK: b/l moderate LE pitting edema Psych: AAOx3, normal affect Principal Diagnosis Acute on chronic heart failure with reduced ejection fraction and diastolic dysfunction Pulmonary edema Hypertension Discharge Exam GENERAL: Alert and oriented x3. NAD, on RA. Obese class II. HEENT: No pallor, no icterus. Pupils equal, round and reactive to light. Oral mucosa moist. NECK: No JVD, no neck masses. HEART: S1 and S2 heard. Regular rate and rhythm. No murmur, no gallop. RESPIRATORY SYSTEM: Normal AP diameter. No accessory muscle use. No wheezing, no crackles. ABDOMEN: Soft, bowel sounds present, nontender, no distention. CENTRAL NERVOUS SYSTEM: No facial droop. Speech is clear. Obeys simple commands. Moves extremities. EXTREMITIES: trace ble edema, no erythema seen. Discharge Data Allergies Allergy/AdvReac Type Severity Reaction Status Date / Time No Known Allergies Allergy Unverified 04/23/22 19:10 Consultations 04/23/22 19:49 ED Decision to Admit Stat 04/23/22 19:58 ED Decision to Admit Stat 04/24/22 07:00 Consult Cardiology Routine Procedures Performed Operation Date: 04/25/22 12:00 Actual Procedures p Cineradiography w/Routine Exam - Shon Michelle DO Ordered Studies 04/23/22 17:57 CT angio chest PE protocol Stat 04/25/22 12:00 CL Cath Imgs for PACS use only Routine Hospital Course (1) Acute heart failure with reduced ejection fraction and diastolic dysfunction: Presented with shortness of breath and chest tightness Angina equivalent Trops were mildly elevated but has been decreasing Shortness of breath/chest tightness is better following admission Chest tightness is almost gone Status post cath with clean coronaries Further management is as below (2) SOB (shortness of breath): As above No shortness of breath at rest and with moving around per patient. (3) Pulmonary edema: Secondary to Acute heart failure with reduced ejection fraction and diastolic dysfunction Was on IV Lasix, to p.o. Lasix from today. Continue with Aldactone. (4) Cardiomegaly: This is a 56yo M with HTN, [place], gout who presents with chest tightness and SOB. Was seen earlier this afternoon at urgent care and given nebulizer without much improvement of symptoms and was directed to ED for further evaluation and found to have cardiomegaly and pulmonary edema concerning for CHF. SOB, chest tightness and orthopnea since early this AM Denies previous dx of HTN,CHF, arrhythmia or [place] Chest CTA without pulmonary emboli identified. Moderate cardiomegaly. Small bilateral pleural effusions with interstitial pulmonary edema. Moderate aortic valvular calcification Given aspirin 324 and lasix 20mg IV x 1 in ED with good diuresis so far. Will plan on additional 10mg IV in AM and reassess volume Strict I&Os, added BNP to labs, low sodium diet, daily weights, 2D echo, repeat ECG in AM, cardiology consult ECG with NSR with frequent PVCs. HS troponin 53.9 in setting of uncontrolled BP - trend, monitor on tele Echo of the heart showed: LV systolic function is moderate to severely reduced with EF 35 to 40%, moderate concentric left ventricle hypertrophy, moderate global hypokinesis with severe hypokinesis of the base and posterior wall, left atrium is moderately dilated, aortic valve sclerosis without significant sten osis and there is mild MR Appreciate cardiology input and recommendation Remains medically stable without any cardiac symptoms Has been getting lisinopril 5 mg once a day Has been on metoprolol tartrate 25 mg twice daily-will be transition to succinate today prior to discharge (5) HTN (hypertension): Uncontrolled since arrival, 170/106 during interview. Ordered 10mg IV Labetalol. Continue to monitor closely History of HTN per outpatient chart review but patient denies ever taking medications for this Does endorse recent weight gain, concern about ill-fitting cpap device Blood pressure seems to be stable at 149/91 Blood pressure remains stable (6) [place] on CPAP: Wears HS, 13 cwp DVT Ppx: SQ heparin Code status: FULL PCP: Minh Dispo: Admitted to PCU Plan Patient being discharged home with following instruction at the point of discharge: Follow-up with your primary care physician within a week time and likely you will need blood labs CBC/CMP. Follow-up with your cardiology in 1 to 2 weeks upon discharge. Cardiology evaluated you for acute heart failure, your cardiac medication has been optimized. You will be discharged on cardiac medications, take them as prescribed. Maintain heart healthy and low-sodium diet. Maintain fluid restriction of 1.8 L/day. Take your medications as prescribed. Please make sure that you are able to get your medications today by calling your pharmacy before you leave the hospital so that your treatment continuity is not broken. Home Health Attestation I certify that this patient is under my care and that I, or a physicians funeral assistant working with me, had a face to-face encounter that meets the home health [id number] encounter requirements with this patient. The encounter with the patient was in whole, or in part, for the following medical condition, which is the primary reason for home health care (list medical condition): I certify that, based on my findings, the following services are medically necessary home health services: My clinical findings support the need for the above services because: Further, I certify that my clinical findings support that this patient is homebound (i.e. absences from home require considerable and taxing effort and are for medical reasons or buddhist services or infrequently or of short duration when for other reasons) because: Certification for Home Health Services: Based on the above findings, I certify that this patient is confined to the home and needs intermittent jail care, physical therapy and/or speech therapy or continues to need occupational therapy. The patient is under my care, and I have initiated the establishment of the plan of care. This patient will be followed by a physician who will periodically review the plan of care. Total Time Total Time Spent Total Time Spent (In Minutes): 50 Discharge Plan Discharge Items Patient Disposition: Home - Self-Care Reason For Visit: PULMONARY EDEMA Discharge Diagnosis: Acute on chronic heart failure with reduced ejection fraction and diastolic dysfunction Pulmonary edema Hypertension Activity: Resume your previous activity Non-emergency contact: Primary Care Provider Call non-emergency contact if: you have any medication questions, your symptoms worsen and your temperature is above 101 Follow-up/Referrals: Av Wilkinson MD [Primary Care Provider] - (Date & Time 05/01/2022 11:00 AM Provider Av Wilkinson MD Department [facility] ) Diet: Heart Healthy Fluids: 1800ml (7 cups) Addtl Attending Provider Instructions: Follow-up with your primary care physician within a week time and likely you will need blood labs CBC/CMP. Follow-up with your cardiology in 1 to 2 weeks upon discharge. Cardiology evaluated you for acute heart failure, your cardiac medication has been optimized. You will be discharged on cardiac medications, take them as prescribed. Maintain heart healthy and low-sodium diet. Maintain fluid restriction of 1.8 L/day. Take your medications as prescribed. Please make sure that you are able to get your medications today by calling your pharmacy before you leave the hospital so that your treatment continuity is not broken. Pending Studies at Discharge: No Stand-Alone Forms: [facility], Smoking Cessation Medications and DC Order Prescriptions: New lisinopril [Zestril] 5 mg Tablet 5 mg PO QAM Qty: 30 0RF metoprolol tartrate 25 mg Tablet 25 mg PO BID Qty: 60 0RF spironolactone 25 mg Tablet 25 mg PO QAM Qty: 30 0RF aspirin 81 mg Tablet,Delayed Release (Dr/Ec) 81 mg PO QAM Qty: 30 0RF furosemide 40 mg Tablet 40 mg PO QAM Qty: 30 0RF Continued Mucinex Fast-Max Cold-Flu [id number] mg Capsule 2 tab PO Q4H PRN (Reason: .cold/flu) multivitamin Tablet 1 tab PO DAILY Discharge Orders: Discharge Order (Routine); Ordered 04/27/22 Ordered By: John Galvan Admission Data Admit Date/Time: 04/23/22 19:59 Attending Provider: John Galvan Admit Provider: José Miguel Belle Primary Care Provider: Av Wilkinson Other Providers: John Galvan ; José Miguel Belle ; Shon Michelle
[2022-04-27] MEDS ORDERED: FUROSEMIDE 40 MG TAB PO ONE (12:30)
[2022-04-28] MEDS ORDERED: FUROSEMIDE 40 MG TAB PO SCH (09:00)
[2022-04-30 08:27] LABS: Albumin 3.7 g/dL (3.8-4.8); Alpha 1 Globulin 0.2 g/dL (0.2-0.3); Alpha 2 Globulin 0.7 g/dL (0.5-0.9); Beta-1-Globulin 0.4 g/dL (0.4-0.6); Beta-2-Globulin 0.4 g/dL (0.2-0.5); Gamma Globulin 1.2 g/dL (0.8-1.7); Monoclonal Protein Band 2 DNR g/dL (NONE DETECTED); Monoclonal Protein Band 3 DNR g/dL (NONE DETECTED); Total Protein 6.5 g/dL (6.1-8.1)
== END 2022-04-27 14:30 | disposition home or self-care (01) | DRG 286 ==
LOC: ED 15:09 → SUATTDRO 19:59 → EDINP 19:59 → 4W 22:03
DX: I42.9 Cardiomyopathy, unspecified; I11.0 Hypertensive heart disease with heart failure; I50.23 Acute on chronic systolic (congestive) heart failure; M10.9 Gout, unspecified; I25.110 Atherosclerotic heart disease of native coronary artery with unstable angina pectoris; J90 Pleural effusion, not elsewhere classified; G47.33 Obstructive sleep apnea (adult) (pediatric)